=== PATIENT | male | born 1940 | race Caucasian/White ===

== ENCOUNTER 2023-03-23 08:49 | Inpatient (IN) | payer MEDICARE ==
[2023-03-23] MEDS ORDERED: SODIUM CHLORIDE 0.9% 1,000 ML IV STA (09:04)
[2023-03-23] MEDS ORDERED: ONDANSETRON 4 MG/2 ML VIAL IVP STA (09:04)
[2023-03-23] MEDS ORDERED: FAMOTIDINE 20 MG/2 ML VIAL IV STA (09:05)
[2023-03-23] MEDS ORDERED: KETOROLAC 15 MG/ML 1 ML VIAL IVP STA (09:05)
--- NOTE | 2023-03-23 09:35 | ED ---
Abdominal Pain HPI - General Chief Complaint: Abdominal Pain Stated Complaint: Abd Pain Time Seen by Provider: 03/23/23 08:54 Source: patient, RN notes reviewed Mode of arrival: ambulatory Limitations: no limitations - History of Present Illness Initial Comments: This is an 83-year-old male who presents to the emergency department for abdominal pain, nausea, vomiting, and diarrhea. States that last night he was having some centralized and upper abdominal pain with diarrhea. This morning when he woke up he proceeded to vomit a couple of times. He continues to have the abdominal pain. He is also starting to feel weak as a result of all of the vomiting. Patient wonders if it may be due to new chicken he has been eating. Denies any fevers or chills. Also denies any chest pain or shortness of breath. He does not drink alcohol. MD Complaint: abdominal pain Onset/Timin -: days(s) Location: periumbilical - Related Data Home Medications Medication Instructions Recorded Confirmed Atorvastatin Calcium [Lipitor] 40 mg PO HS 11/25/22 03/23/23 Meloxicam [Mobic] 15 mg PO DAILY 11/25/22 03/23/23 Omeprazole [PriLOSEC] 20 mg PO DAILY 11/25/22 03/23/23 atenoloL [Tenormin] 50 mg PO DAILY 11/25/22 03/23/23 Benazepril/Hydrochlorothiazide 1 tab PO DAILY 03/23/23 03/23/23 [Benazepril-Hctz 20-12.5 mg Tab] Cyclobenzaprine [Flexeril] 5 - 10 mg PO HS PRN 03/23/23 03/23/23 Donepezil 23mg 23 mg PO DAILY 03/23/23 03/23/23 Ferrous Sulfate [Feosol] 325 mg PO DAILY 03/23/23 03/23/23 Tamsulosin [Flomax] 0.4 mg PO DAILY 03/23/23 03/23/23 Allergies Allergy/AdvReac Type Severity Reaction Status Date / Time No Known Allergies Allergy Verified 03/23/23 12:55 Review of Systems ROS Statement: Those systems with pertinent positive or pertinent negative responses have been documented in the HPI. ROS Other: All systems not noted in ROS Statement are negative. Past Medical History Past Medical History: Hyperlipidemia, Hypertension Additional Past Medical History / Comment(s): kidney stones, Back pain History of Any Multi-Drug Resistant Organisms: None Reported Past Surgical History: No Surgical Hx Reported Past Psychological History: No Psychological Hx Reported Smoking Status: Never smoker Past Alcohol Use History: None Reported Past Drug Use History: None Reported - Past Family History Mother Additional Family Medical History / Comment(s): Brain surgery for removal of tumor-patient never recovered. Father Family Medical History: Prostate Disorder Additional Family Medical History / Comment(s): Prostate cancer. Urostomy. General Exam Limitations: no limitations General appearance: alert, in no apparent distress Head exam: Present: atraumatic, normocephalic, normal inspection Respiratory exam: Present: normal lung sounds bilaterally. Absent: respiratory distress, wheezes, rales, rhonchi, stridor Cardiovascular Exam: Present: regular rate, normal rhythm, normal heart sounds. Absent: systolic murmur, diastolic murmur, rubs, gallop, clicks GI/Abdominal exam: Present: soft, tenderness (epigastric and periumbilical), normal bowel sounds. Absent: distended Neurological exam: Present: alert, oriented X3, CN II-XII intact Psychiatric exam: Present: normal affect, normal mood Skin exam: Present: warm, dry, intact, normal color. Absent: rash Course Vital Signs 03/23/23 03/23/23 03/23/23 08:50 09:30 10:00 Temperature 98 F Pulse Rate 65 64 65 Respiratory 18 19 16 Rate Blood Pressure 211/83 191/83 173/81 O2 Sat by Pulse 98 100 100 Oximetry 03/23/23 12:00 Temperature 98.1 F Pulse Rate 65 Respiratory 16 Rate Blood Pressure 166/73 O2 Sat by Pulse 97 Oximetry Medical Decision Making - Medical Decision Making This is an 83-year-old male who presents to the emergency department for abdominal pain. Was pt. sent in by a medical professional or institution? @ -No Did you speak to anyone other than the patient for history? @ -No Did you review nursing and triage notes? @ -Yes, and I agree, it is accurate with regards to the patient's symptoms. Were old charts reviewed? @ -No Differential Diagnosis? @ -Differential Abdominal Pain Men: Appendicitis, cholecystitis, diverticulosis, ischemic bowel, pancreatitis, hepatitis, UTI, gastroenteritis, AAA, incarcerated hernia, bowel obstruction, constipation, inflammatory bowel, hepatitis, peptic ulcer disease, splenic infarction, perforated viscus, testicular torsion, this is not meant to be an all-inclusive list EKG interpreted by me (3pts min.)? @ -EKG interpreted by me demonstrating the following: Sinus rhythm. Ventricular rate 61 beats per minute, CO interval 190 ms, QRS duration 116 ms, QTC 458 ms. X-rays interpreted by me (1pt min.)? @ -Not obtained CT interpreted by me (1pt min.)? @ -Computed tomography scan of the abdomen and pelvis obtained. My interpretation identifies no evidence of bowel wall thickening or free air. U/S interpreted by me (1pt. min.)? @ -Not obtained What testing was considered but not performed? (CT, X-rays, U/S, labs)? Why? @ -None What meds were considered but not given? Why? @ -None Did you discuss the management of the patient with other professionals? @ -Yes, Dr. Hernandez, who accepts the patient for admission. Did you reconcile home meds? @ -Yes Was smoking cessation discussed for >3mins.? @ -No Was critical care preformed (if so, how long)? @ -No Were there social determinants of health that impacted care today? How? (Homelessness, low income, unemployed, alcoholism, drug addiction, transportation, low edu. Level, literacy, decrease access to med. care, assisted, rehab)? @ -No Was there de-escalation of care discussed even if they declined? (Discuss DNR or withdrawal of care, Hospice)? @ -No What co-morbidities impacted this encounter? (DM, HTN, Smoking, COPD, CAD, Cancer, CVA, Hep., AIDS, mental health diagnosis, sleep apnea, morbid obesity)? @ -HLD Was patient admitted / discharged? @ -Admitted. Lab work obtained with findings consistent with pancreatitis with a lipase of 1485. Amylase elevated as well at 248. Computed tomography scan of the abdomen and pelvis obtained revealing no acute process. Patient does not consume alcohol and there were no gallstones visualized on the computed tomography scan. He does have a history of hyperlipidemia and a lipid panel was ordered with results pending at the time of admission. Patient admitted to medicine for further management of pancreatitis. He will be kept NPO for the meantime due to the associated nausea and vomiting. Undiagnosed new problem with uncertain prognosis? @ -None Drug Therapy requiring intensive monitoring for toxicity (Heparin, Nitro, Insulin, Cardizem)? @ -None Were any procedures done? @ -None Diagnosis/symptom? @ -Pancreatitis Acute, or Chronic, or Acute on Chronic? @ -Acute Uncomplicated (without systemic symptoms) or Complicated (systemic symptoms)? @ -Uncomplicated Side effects of treatment? @ -None Exacerbation, Progression, or Severe Exacerbation] @ -Not applicable Poses a threat to life or bodily function? @ -This could become threatening if it were to progress This case was discussed in detail with the attending ED physician, Dr. Arredondo. Presentation, findings, and treatment plan discussed in detail as well. - Lab Data Result diagrams: 03/23/23 09:13 03/23/23 09:13 Lab Results 03/23/23 03/23/23 03/23/23 Range/Units 09:13 09:13 09:13 WBC 7.4 (3.8-10.6) k/uL RBC 4.64 (4.30-5.90) m/uL Hgb 13.9 (13.0-17.5) gm/dL Hct 40.7 (39.0-53.0) % MCV 87.6 (80.0-100.0) fL MCH 29.8 (25.0-35.0) pg MCHC 34.1 (31.0-37.0) g/dL RDW 13.8 (11.5-15.5) % Plt Count 212 (150-450) k/uL MPV 7.7 Neutrophils % 84 % Lymphocytes % 11 % Monocytes % 3 % Eosinophils % 0 % Basophils % 0 % Neutrophils # 6.2 (1.3-7.7) k/uL Lymphocytes # 0.8 L (1.0-4.8) k/uL Monocytes # 0.2 (0-1.0) k/uL Eosinophils # 0.0 (0-0.7) k/uL Basophils # 0.0 (0-0.2) k/uL Sodium 138 (137-145) mmol/L Potassium 3.9 (3.5-5.1) mmol/L Chloride 106 (98-107) mmol/L Carbon Dioxide 20 L (22-30) mmol/L Anion Gap 12 mmol/L BUN 12 (9-20) mg/dL Creatinine 0.82 (0.66-1.25) mg/dL Est GFR (CKD-EPI)AfAm >90 (>60 ml/min/1.73 sqM) Est GFR (CKD-EPI)NonAf 81 (>60 ml/min/1.73 sqM) Glucose 194 H (74-99) mg/dL Lactic Ac Sepsis Rflx Plasma Lactic Acid Adams (0.7-2.0) mmol/L Calcium 9.0 (8.4-10.2) mg/dL Total Bilirubin 1.1 (0.2-1.3) mg/dL AST 25 (17-59) U/L ALT 25 (4-49) U/L Alkaline Phosphatase 90 (38-126) U/L Total Protein 6.1 L (6.3-8.2) g/dL Albumin 4.1 (3.5-5.0) g/dL Amylase 268 H (30-110) U/L Lipase 1485 H (23-300) U/L Urine Color Colorless Urine Appearance Clear (Clear) Urine pH 7.0 (5.0-8.0) Ur Specific [place] 1.013 (1.001-1.035) Urine Protein Negative (Negative) Urine Glucose (UA) 3+ H (Negative) Urine Ketones 2+ H (Negative) Urine Blood Negative (Negative) Urine Nitrite Negative (Negative) Urine Bilirubin Negative (Negative) Urine Urobilinogen <2.0 (<2.0) mg/dL Ur Leukocyte Esterase Negative (Negative) Serum Alcohol mg/dL Influenza Type A (PCR) (Not Detectd) Influenza Type B (PCR) (Not Detectd) RSV (PCR) (Not Detectd) SARS-CoV-2 (PCR) (Not Detectd) 03/23/23 03/23/23 03/23/23 Range/Units 09:13 09:39 10:05 WBC (3.8-10.6) k/uL RBC (4.30-5.90) m/uL Hgb (13.0-17.5) gm/dL Hct (39.0-53.0) % MCV (80.0-100.0) fL MCH (25.0-35.0) pg MCHC (31.0-37.0) g/dL RDW (11.5-15.5) % Plt Count (150-450) k/uL MPV Neutrophils % % Lymphocytes % % Monocytes % % Eosinophils % % Basophils % % Neutrophils # (1.3-7.7) k/uL Lymphocytes # (1.0-4.8) k/uL Monocytes # (0-1.0) k/uL Eosinophils # (0-0.7) k/uL Basophils # (0-0.2) k/uL Sodium (137-145) mmol/L Potassium (3.5-5.1) mmol/L Chloride (98-107) mmol/L Carbon Dioxide (22-30) mmol/L Anion Gap mmol/L BUN (9-20) mg/dL Creatinine (0.66-1.25) mg/dL Est GFR (CKD-EPI)AfAm (>60 ml/min/1.73 sqM) Est GFR (CKD-EPI)NonAf (>60 ml/min/1.73 sqM) Glucose (74-99) mg/dL Lactic Ac Sepsis Rflx Y Plasma Lactic Acid Adams 2.3 H* (0.7-2.0) mmol/L Calcium (8.4-10.2) mg/dL Total Bilirubin (0.2-1.3) mg/dL AST (17-59) U/L ALT (4-49) U/L Alkaline Phosphatase (38-126) U/L Total Protein (6.3-8.2) g/dL Albumin (3.5-5.0) g/dL Amylase (30-110) U/L Lipase (23-300) U/L Urine Color Urine Appearance (Clear) Urine pH (5.0-8.0) Ur Specific [place] (1.001-1.035) Urine Protein (Negative) Urine Glucose (UA) (Negative) Urine Ketones (Negative) Urine Blood (Negative) Urine Nitrite (Negative) Urine Bilirubin (Negative) Urine Urobilinogen (<2.0) mg/dL Ur Leukocyte Esterase (Negative) Serum Alcohol mg/dL Influenza Type A (PCR) Not Detected (Not Detectd) Influenza Type B (PCR) Not Detected (Not Detectd) RSV (PCR) Not Detected (Not Detectd) SARS-CoV-2 (PCR) Not Detected (Not Detectd) 03/23/23 Range/Units 11:20 WBC (3.8-10.6) k/uL RBC (4.30-5.90) m/uL Hgb (13.0-17.5) gm/dL Hct (39.0-53.0) % MCV (80.0-100.0) fL MCH (25.0-35.0) pg MCHC (31.0-37.0) g/dL RDW (11.5-15.5) % Plt Count (150-450) k/uL MPV Neutrophils % % Lymphocytes % % Monocytes % % Eosinophils % % Basophils % % Neutrophils # (1.3-7.7) k/uL Lymphocytes # (1.0-4.8) k/uL Monocytes # (0-1.0) k/uL Eosinophils # (0-0.7) k/uL Basophils # (0-0.2) k/uL Sodium (137-145) mmol/L Potassium (3.5-5.1) mmol/L Chloride (98-107) mmol/L Carbon Dioxide (22-30) mmol/L Anion Gap mmol/L BUN (9-20) mg/dL Creatinine (0.66-1.25) mg/dL Est GFR (CKD-EPI)AfAm (>60 ml/min/1.73 sqM) Est GFR (CKD-EPI)NonAf (>60 ml/min/1.73 sqM) Glucose (74-99) mg/dL Lactic Ac Sepsis Rflx Plasma Lactic Acid Adams (0.7-2.0) mmol/L Calcium (8.4-10.2) mg/dL Total Bilirubin (0.2-1.3) mg/dL AST (17-59) U/L ALT (4-49) U/L Alkaline Phosphatase (38-126) U/L Total Protein (6.3-8.2) g/dL Albumin (3.5-5.0) g/dL Amylase (30-110) U/L Lipase (23-300) U/L Urine Color Urine Appearance (Clear) Urine pH (5.0-8.0) Ur Specific [place] (1.001-1.035) Urine Protein (Negative) Urine Glucose (UA) (Negative) Urine Ketones (Negative) Urine Blood (Negative) Urine Nitrite (Negative) Urine Bilirubin (Negative) Urine Urobilinogen (<2.0) mg/dL Ur Leukocyte Esterase (Negative) Serum Alcohol <10 mg/dL Influenza Type A (PCR) (Not Detectd) Influenza Type B (PCR) (Not Detectd) RSV (PCR) (Not Detectd) SARS-CoV-2 (PCR) (Not Detectd) - Radiology Data Radiology results: report reviewed, image reviewed Disposition Clinical Impression: Pancreatitis Disposition: ADMITTED IP TO THIS HOSP
[2023-03-23 09:45] LABS: Basophils % (A) 0 %; Eosinophils % (A) 0 %; HCT 40.7 % (39.0-53.0); HGB 13.9 gm/dL (13.0-17.5); Lymphocytes # (A) 0.8 k/uL (1.0-4.8); Lymphocytes % (A) 11 %; MCH 29.8 pg (25.0-35.0); MCHC 34.1 g/dL (31.0-37.0); MCV 87.6 fL (80.0-100.0); Mean Platelet Volume 7.7; Monocytes # (A) 0.2 k/uL (0-1.0); Monocytes % (A) 3 %; Neutrophils # (A) 6.2 k/uL (1.3-7.7); Neutrophils % (A) 84 %; Platelet Count 212 k/uL (150-450); RBC 4.64 m/uL (4.30-5.90); RDW 13.8 % (11.5-15.5); WBC 7.4 k/uL (3.8-10.6)
[2023-03-23 09:57] LABS: ALT 25 U/L (4-49); AST 25 U/L (17-59); African American GFR (CKD) >90 (>60 ml/min/1.73 sqM); Albumin 4.1 g/dL (3.5-5.0); Alkaline Phosphatase 90 U/L (38-126); Amylase 268 U/L (30-110); Anion Gap 12 mmol/L; Blood Urea Nitrogen 12 mg/dL (9-20); Carbon Dioxide 20 mmol/L (22-30); Chloride 106 mmol/L (98-107); Glucose 194 mg/dL (74-99); Lipase 1485 U/L (23-300); Non-African American GFR(CKD) 81 (>60 ml/min/1.73 sqM); Potassium 3.9 mmol/L (3.5-5.1); Sodium 138 mmol/L (137-145); Total Bilirubin 1.1 mg/dL (0.2-1.3); Total Protein 6.1 g/dL (6.3-8.2)
[2023-03-23 09:59] LABS: Appearance,Urine Clear (Clear); Bilirubin,Urine Negative (Negative); Blood,Urine Negative (Negative); Color,Urine Colorless; Glucose,Urine (UA) 3+ (Negative); Leukocyte Esterase,Urine Negative (Negative); Nitrite,Urine Negative (Negative); Protein,Urine Negative (Negative); Specific Gravity,Urine 1.013 (1.001-1.035); Urobilinogen,Urine <2.0 mg/dL (<2.0)
[2023-03-23 10:49] LABS: Ketones,Urine 2+ (Negative)
[2023-03-23] MEDS ORDERED: HYDROmorphone 0.5 MG/0.5 ML SYRINGE IVP STA (10:50)
--- NOTE | 2023-03-23 10:55 | CT ---
EXAMINATION TYPE: CT abdomen pelvis w con DATE OF EXAM: 03/23/2023 COMPARISON: 10/20/2015 HISTORY: Generalized pain, nausea and vomiting CT DLP: 767 mGycm CONTRAST: CT scan of the abdomen and pelvis is performed without Oral Contrast and with IV Contrast, patient in jected with 100 mL of Isovue 300. FINDINGS: LUNG BASES-: No visible nodule. No infiltrate. LIVER/GB: No calcified gallstones. There are a few scattered hepatic cysts noted on measuring less than 1 cm. No space occupying hepatic lesion. Biliary tree is of normal caliber. PANCREAS: No inflammation. No distinct mass. SPLEEN: No splenic enlargement. No lesion seen. ADRENALS: No nodule. No thickening. KIDNEYS/BLADDER: No hydronephrosis. 7 mm nonobstructing calculus lower pole right kidney. Renal cyst ic changes noted. No distinct renal mass. Urinary bladder grossly unremarkable. BOWEL: Normal appendix. Normal bowel caliber. No inflammation. GENITAL ORGANS: No gross abnormality. LYMPH NODES: No greater than 1cm abdominal or pelvic lymph nodes are appreciated. AORTA: No significant abnormality. OSSEOUS STRUCTURES: No significant abnormality is seen. OTHER: Fat-containing inguinal hernias. IMPRESSION: 1. No acute intra-abdominal process seen with certainty of this time. 2. Nonobstructing left-sided nephrolithiasis. 3. Scattered renal and hepatic cysts.
[2023-03-23] MEDS ORDERED: KETOROLAC 15 MG/ML 1 ML VIAL IVP PRN (11:10)
[2023-03-23] MEDS ORDERED: ACETAMINOPHEN TAB 325 MG TAB PO PRN (11:10)
[2023-03-23] MEDS ORDERED: HYDROmorphone 1 MG/ML 1 ML SYRINGE IVP PRN (11:10)
[2023-03-23] MEDS ORDERED: HYDROmorphone 0.5 MG/0.5 ML SYRINGE IVP PRN (11:10)
[2023-03-23] MEDS ORDERED: NALOXONE 0.4 MG/ML 1 ML VIAL IV PRN (11:10)
[2023-03-23] MEDS: SODIUM CHLORIDE 0.9% 1,000 ML IV SCH (11:21)
[2023-03-23 12:02] LABS: Alcohol <10 mg/dL
[2023-03-23] MEDS: MORPHINE SULFATE 4 MG/ML SYRINGE IVP PRN ×2 (13:34→19:00)
[2023-03-23] MEDS ORDERED: hydrALAZINE HCL 25 MG TAB PO STA (14:14)
[2023-03-23] MEDS ORDERED: CYCLOBENZAPRINE 5 MG TAB PO PRN (15:43)
[2023-03-23 16:28] LABS: LDL Cholesterol,Calculated 48.4 mg/dL (0.0-131.0)
--- NOTE | 2023-03-23 17:29 | P.HPIM ---
History of Present Illness H&P Date: 03/23/23 Chief Complaint: abd pain 83-year-old man with medical history of hyperlipidemia, hypertension, BPH presented for evaluation of abdominal pain. Patient says that starting 2 days ago he started to have a gradual increase of gnawing/sharp abdominal pain in his epigastrium. This is associated with nausea, vomiting as well as some diarrhea. Patient's ever had abdominal pain of this nature before. Patient denies any history of recent medication changes, denies alcohol history, denies tobacco use. Patient denies fevers, chills, chest pain, palpitations, syncope, presync ope, cough, dyspnea, dysuria, dyschezia, numbness/weakness of extremities. In the emergency room, patient was afebrile, 211/83, heart rate 65, 98% on room air. CBC was unremarkable. Basic metabolic panel showed CO2 of 20, otherwise unremarkable. Liver function tests are unremarkable. Amylase was elevated at 260, lipase is elevated at 1485. Lactic acid was 2.3. A repeat lactic acid was 0.9 after IV fluids. UA showed 3+ glucose, 2+ ketones. Alcohol level is less than 10. Influenza A, B, RSV, Covid were negative. CT of the abdomen/pelvis was negative for inflammatory pancreatic changes, but did show nonobstructing left-sided nephrolithiasis. EKG shows normal sinus rhythm with appropriate axis and incomplete right bundle branch block. All Systems reviewed and pertinent positives and negatives noted in HPI, all other symptoms are negative Gen: in no apparent distress, resting comfortably in bed Eyes: PERRL, no scleral injection or icterus HENT: normocephalic, atraumatic, good hearing acuity, moist mucous membranes Neck: no tracheal deviation, full range of motion Resp: good air exchange, breathing comfortably with no accessory muscle use, no tactile fremitus CVS: good distal perfusion x 4, no pitting edema GI: soft, epigastric TTP, ND, no hepatosplenomegaly : no suprapubic tenderness, no CVAT, johns catheter not present MSK: no clubbing, no cyanosis, no noted contractures of extremities Skin: no noted rashes, petechiae; temperature of skin is appropriate Neuro: moving all extremities without signs of weakness, CN II-XII intact Psych: cooperative, euthymic mood, insight and judgment intact Labs and Images as above Assessment/Plan: Acute Pancreatitis - IVF - NPO - morphine PRN for pain control - zofran PRN for nausea control - PPI HTN Urgency - resume atenolol - resume HCTZ/Benazepril - hydralazine 25mg QID PRN for SBP > 180, DBP > 110 HLD BPH - Home medications reviewed and reconciled Pt is Full Code Past Medical History Past Medical History: Hyperlipidemia, Hypertension Additional Past Medical History / Comment(s): kidney stones, Back pain History of Any Multi-Drug Resistant Organisms: None Reported Past Surgical History: No Surgical Hx Reported Past Psychological History: No Psychological Hx Reported Smoking Status: Never smoker Past Alcohol Use History: None Reported Past Drug Use History: None Reported - Past Family History Mother Additional Family Medical History / Comment(s): Brain surgery for removal of tumor-patient never recovered. Father Family Medical History: Prostate Disorder Additional Family Medical History / Comment(s): Prostate cancer. Urostomy. Medications and Allergies Home Medications Medication Instructions Recorded Confirmed Type Atorvastatin Calcium [Lipitor] 40 mg PO HS 11/25/22 03/23/23 History Meloxicam [Mobic] 15 mg PO DAILY 11/25/22 03/23/23 History Omeprazole [PriLOSEC] 20 mg PO DAILY 11/25/22 03/23/23 History atenoloL [Tenormin] 50 mg PO DAILY 11/25/22 03/23/23 History Benazepril/Hydrochlorothiazide 1 tab PO DAILY 03/23/23 03/23/23 History [Benazepril-Hctz 20-12.5 mg Tab] Cyclobenzaprine [Flexeril] 5 - 10 mg PO HS PRN 03/23/23 03/23/23 History Donepezil 23mg 23 mg PO DAILY 03/23/23 03/23/23 History Ferrous Sulfate [Feosol] 325 mg PO DAILY 03/23/23 03/23/23 History Tamsulosin [Flomax] 0.4 mg PO DAILY 03/23/23 03/23/23 History Allergies Allergy/AdvReac Type Severity Reaction Status Date / Time No Known Allergies Allergy Verified 03/23/23 12:55 Physical Exam Osteopathic Statement: *. No significant issues noted on an osteopathic structural exam other than those noted in the History and Physical/Consult. Vitals: Vital Signs Temp Pulse Pulse Resp BP BP Pulse Ox 03/23/23 15:54 97.6 F 72 15 190/77 98 03/23/23 14:14 97.8 F 65 14 194/83 99 03/23/23 13:07 97.8 F 61 16 199/79 98 03/23/23 12:00 98.1 F 65 16 166/73 97 03/23/23 10:00 65 16 173/81 100 03/23/23 09:30 64 19 191/83 100 03/23/23 08:50 98 F 65 18 211/83 98 Intake and Output 03/23/23 03/23/23 03/23/23 06:59 14:59 22:59 Other: Voiding Method Toilet Urinal Weight 75.75 kg Results CBC & Chem 7: 03/23/23 09:13 03/23/23 09:13 Labs: Abnormal Lab Results - Last 24 Hours (Table) 03/23/23 03/23/23 03/23/23 Range/Units 09:13 09:13 09:13 Lymphocytes # 0.8 L (1.0-4.8) k/uL Carbon Dioxide 20 L (22-30) mmol/L Glucose 194 H (74-99) mg/dL Plasma Lactic Acid Adams (0.7-2.0) mmol/L Total Protein 6.1 L (6.3-8.2) g/dL HDL Cholesterol (40.00-60.00) mg/dL Amylase 268 H (30-110) U/L Lipase 1485 H (23-300) U/L Urine Glucose (UA) 3+ H (Negative) Urine Ketones 2+ H (Negative) 03/23/23 03/23/23 Range/Units 09:13 11:20 Lymphocytes # (1.0-4.8) k/uL Carbon Dioxide (22-30) mmol/L Glucose (74-99) mg/dL Plasma Lactic Acid Adams 2.3 H* (0.7-2.0) mmol/L Total Protein (6.3-8.2) g/dL HDL Cholesterol 61.70 H (40.00-60.00) mg/dL Amylase (30-110) U/L Lipase (23-300) U/L Urine Glucose (UA) (Negative) Urine Ketones (Negative) Thrombosis Risk Factor Assmnt - Choose All That Apply Any of the Below Risk Factors Present?: Yes Each Risk Factor Represents 3 Points: Age 75 years or older Thrombosis Risk Factor Assessment Total Risk Factor Score: 3 Thrombosis Risk Factor Assessment Level: Moderate Risk
[2023-03-23] MEDS: ATORVASTATIN 40 MG TAB PO SCH (21:26)
[2023-03-23] MEDS: ONDANSETRON 4 MG/2 ML VIAL IVP PRN (21:35)
[2023-03-24] MEDS: MORPHINE SULFATE 4 MG/ML SYRINGE IVP PRN (00:10)
[2023-03-24] MEDS: SODIUM CHLORIDE 0.9% 1,000 ML IV SCH ×2 (02:34→15:57)
[2023-03-24] MEDS: hydrALAZINE HCL 25 MG TAB PO PRN ×3 (02:58→22:32)
[2023-03-24] MEDS: PANTOPRAZOLE 40 MG TABLET PO SCH (09:43)
[2023-03-24] MEDS: atenoloL 50 MG TAB PO SCH (09:43)
[2023-03-24] MEDS: MELOXICAM 7.5 MG TAB PO SCH (09:44)
[2023-03-24] MEDS: FERROUS SULFATE 325 MG TAB PO SCH (09:44)
[2023-03-24] MEDS: TAMSULOSIN 0.4 MG CAP.ER.24H PO SCH (09:44)
[2023-03-24] MEDS: DONEPEZIL 10 MG TAB PO SCH (09:44)
[2023-03-24] MEDS: hydroCHLOROthiazide 12.5 MG CAP PO SCH (09:44)
[2023-03-24] MEDS: lisinopriL 20 MG TAB PO SCH (09:44)
--- NOTE | 2023-03-24 10:16 | P.PN ---
Subjective Progress Note Date: 03/24/23 Pt reports that his abd pain is improved today. Does feel generally weak, and with minimal appetite. Gen: in no apparent distress, resting comfortably in bed Eyes: PERRL, no scleral injection or icterus HENT: normocephalic, atraumatic, good hearing acuity, moist mucous membranes Neck: no tracheal deviation, full range of motion Resp: good air exchange, breathing comfortably with no accessory muscle use, no tactile fremitus CVS: good distal perfusion x 4, no pitting edema GI: soft, epigastric TTP, ND, no hepatosplenomegaly : no suprapubic tenderness, no CVAT, johns catheter not present MSK: no clubbing, no cyanosis, no noted contractures of extremities Skin: no noted rashes, petechiae; temperature of skin is appropriate Neuro: moving all extremities without signs of weakness, CN II-XII intact Psych: cooperative, euthymic mood, insight and judgment intact Hospital Course: 83-year-old man with medical history of hyperlipidemia, hypertension, BPH presented for evaluation of abdominal pain. In the emergency room, patient was afebrile, 211/83, heart rate 65, 98% on room air. CBC was unremarkable. Basic metabolic panel showed CO2 of 20, otherwise unremarkable. Liver function tests are unremarkable. Amylase was elevated at 260, lipase is elevated at 1485. Lactic acid was 2.3. A repeat lactic acid was 0.9 after IV fluids. UA showed 3+ glucose, 2+ ketones. Alcohol level is less than 10. Influenza A, B, RSV, Covid were negative. CT of the abdomen/pelvis was negative for inflammatory pancreatic changes, but did show nonobstructing left-sided nephrolithiasis. EKG shows normal sinus rhythm with appropriate axis and incomplete right bundle branch block. Assessment/Plan: Acute Pancreatitis - IVF: NS @ 75cc/hr - NPO will be advanced to [facility]D today - morphine PRN for pain control - zofran PRN for nausea control - PPI HTN Urgency - resume atenolol - resume HCTZ/Benazepril - hydralazine 25mg QID PRN for SBP > 180, DBP > 110 HLD BPH - Home medications reviewed and reconciled Pt is Full Code Objective - Vital Signs Vital signs: Vital Signs Temp 98.1 F 03/24/23 07:09 Pulse 74 03/24/23 07:09 Resp 16 03/24/23 07:09 BP 182/74 03/24/23 07:09 Pulse Ox 98 03/24/23 07:09 FiO2 Intake & Output 03/23/23 03/24/23 03/24/23 18:59 06:59 18:59 Intake Total 375 Output Total 300 Balance 375 -300 Weight 75.75 kg Intake: Intake, IV Titration 375 Amount Sodium Chloride 0.9% 1, 375 000 ml @ 75 mls/hr IV . [id number] [facility] Rx#:[id number] Output: Urine 300 Other: Voiding Method Toilet Urinal Urinal # Voids 1 - Labs CBC & Chem 7: 03/23/23 09:13 03/23/23 09:13 Labs: Abnormal Lab Results - Last 24 Hours (Table) 03/23/23 03/23/23 Range/Units 09:13 11:20 HDL Cholesterol 61.70 H (40.00-60.00) mg/dL Urine Glucose (UA) 3+ H (Negative) Urine Ketones 2+ H (Negative)
[2023-03-24 10:54] LABS: Basophils # (A) 0.04 X 10*3/uL (0.00-0.10); Basophils % (A) 0.3 %; Eosinophils # (A) 0.01 X 10*3/uL (0.04-0.35); Eosinophils % (A) 0.1 %; HCT 37.5 % (39.6-50.0); HGB 12.9 g/dL (13.0-17.0); Lymphocytes # (A) 1.88 X 10*3/uL (0.90-5.00); Lymphocytes % (A) 13.7 %; MCH 29.6 pg (27.0-32.0); MCHC 34.4 g/dL (32.0-37.0); Mean Platelet Volume 10.4 FL (9.5-12.2); Monocytes # (A) 1.45 X 10*3/uL (0.20-1.00); Monocytes % (A) 10.6 %; NRBC Per 100 WBC 0 X 10*3/uL (0.00-0.01); Neutrophils # (A) 10.28 X 10*3/uL (1.80-7.70); Neutrophils % (A) 74.9 %; Platelet Count 249 X 10*3/uL (140-440); RBC 4.36 X 10*6/uL (4.40-5.60); RDW 13.6 % (11.5-14.5); WBC 13.72 X 10*3/uL (4.50-10.00)
[2023-03-24 11:11] LABS: Blood Urea Nitrogen 8.4 mg/dL (9.0-27.0); Calcium 8.9 mg/dL (8.7-10.3); Carbon Dioxide 23.8 mmol/L (21.6-31.8); Chloride 105 mmol/L (96-109); Glucose 107 mg/dL (70-110); Magnesium 1.8 mg/dL (1.5-2.4); Potassium 3.6 mmol/L (3.5-5.5); Sodium 139 mmol/L (135-145)
[2023-03-24] MEDS: ONDANSETRON 4 MG/2 ML VIAL IVP PRN (12:51)
[2023-03-24] MEDS: ATORVASTATIN 40 MG TAB PO SCH (22:32)
[2023-03-25] MEDS: SODIUM CHLORIDE 0.9% 1,000 ML IV SCH ×2 (06:11→23:04)
[2023-03-25] MEDS: PANTOPRAZOLE 40 MG TABLET PO SCH (08:48)
[2023-03-25] MEDS: TAMSULOSIN 0.4 MG CAP.ER.24H PO SCH (08:49)
[2023-03-25] MEDS: FERROUS SULFATE 325 MG TAB PO SCH (08:49)
[2023-03-25] MEDS: hydroCHLOROthiazide 12.5 MG CAP PO SCH (08:49)
[2023-03-25] MEDS: lisinopriL 20 MG TAB PO SCH (08:49)
[2023-03-25] MEDS: DONEPEZIL 10 MG TAB PO SCH (08:49)
[2023-03-25] MEDS: MELOXICAM 7.5 MG TAB PO SCH (08:49)
[2023-03-25] MEDS: atenoloL 50 MG TAB PO SCH (08:49)
--- NOTE | 2023-03-25 11:53 | P.DS ---
Providers Date of admission: 03/23/23 11:52 Expected date of discharge: 03/25/23 Attending physician: Vielka Hernandez MD Primary care physician: Cholo Kat [facility] Course: Acute Pancreatitis HTN Urgency HLD BPH Hospital Course: 83-year-old man with medical history of hyperlipidemia, hypertension, BPH presented for evaluation of abdominal pain. In the emergency room, patient was afebrile, 211/83, heart rate 65, 98% on room air. CBC was unremarkable. Basic metabolic panel showed CO2 of 20, otherwise unremarkable. Liver function tests are unremarkable. Amylase was elevated at 260, lipase is elevated at 1485. Lactic acid was 2.3. A repeat lactic acid was 0.9 after IV fluids. UA showed 3+ glucose, 2+ ketones. Alcohol level is less than 10. Influenza A, B, RSV, Covid were negative. CT of the abdomen/pelvis was negative for inflammatory pancreatic changes, but did show nonobstructing left-sided nephrolithiasis. EKG shows normal sinus rhythm with appropriate axis and incomplete right bundle branch block. Pt was admitted made NPO. IVF were continued. Pts symptoms resolved with bowel rest. He was able to tolerate a CLD by 24 hours and advanced diet by 48. He was discharged home with PCP f/u. I spent 34 minutes coordinating this discharge on 03/25 Gen: in no apparent distress, resting comfortably in bed Eyes: PERRL, no scleral injection or icterus HENT: normocephalic, atraumatic, good hearing acuity, moist mucous membranes Neck: no tracheal deviation, full range of motion Resp: good air exchange, breathing comfortably with no accessory muscle use, no tactile fremitus CVS: good distal perfusion x 4, no pitting edema GI: soft, epigastric TTP, ND, no hepatosplenomegaly : no suprapubic tenderness, no CVAT, johns catheter not present MSK: no clubbing, no cyanosis, no noted contractures of extremities Skin: no noted rashes, petechiae; temperature of skin is appropriate Neuro: moving all extremities without signs of weakness, CN II-XII intact Psych: cooperative, euthymic mood, insight and judgment intact Plan - Discharge Summary Discharge Rx Participant: Yes New Discharge Prescriptions: Continue atenoloL [Tenormin] 50 mg PO DAILY Meloxicam [Mobic] 15 mg PO DAILY Tamsulosin [Flomax] 0.4 mg PO DAILY Cyclobenzaprine [Flexeril] 5 - 10 mg PO HS PRN PRN Reason: Muscle Spasm Donepezil 23mg 23 mg PO DAILY Omeprazole [PriLOSEC] 20 mg PO DAILY Atorvastatin Calcium [Lipitor] 40 mg PO HS Benazepril/Hydrochlorothiazide [Benazepril-Hctz 20-12.5 mg Tab] 1 tab PO DAILY Ferrous Sulfate [Feosol] 325 mg PO DAILY Discharge Medication List Atorvastatin Calcium [Lipitor] 40 mg PO HS 11/25/22 [History] Meloxicam [Mobic] 15 mg PO DAILY 11/25/22 [History] Omeprazole [PriLOSEC] 20 mg PO DAILY 11/25/22 [History] atenoloL [Tenormin] 50 mg PO DAILY 11/25/22 [History] Benazepril/Hydrochlorothiazide [Benazepril-Hctz 20-12.5 mg Tab] 1 tab PO DAILY 03/23/23 [History] Cyclobenzaprine [Flexeril] 5 - 10 mg PO HS PRN 03/23/23 [History] Donepezil 23mg 23 mg PO DAILY 03/23/23 [History] Ferrous Sulfate [Feosol] 325 mg PO DAILY 03/23/23 [History] Tamsulosin [Flomax] 0.4 mg PO DAILY 03/23/23 [History] Follow up Appointment(s)/Referral(s): Elmer Kat MD [Primary Care Provider] - 1-2 days Discharge Disposition: HOME SELF-CARE
[2023-03-25] MEDS ORDERED: ONDANSETRON ODT 4 MG TAB PO PRN (18:29)
[2023-03-25] MEDS: ATORVASTATIN 40 MG TAB PO SCH (23:42)
[2023-03-26 03:39] VITALS: RESP 16
[2023-03-26] MEDS: SODIUM CHLORIDE 0.9% 1,000 ML IV SCH (05:59)
[2023-03-26 08:45] VITALS: BP 190/74; PULSE 76; TEMP 98.6
[2023-03-26] MEDS: hydroCHLOROthiazide 12.5 MG CAP PO SCH (09:25)
[2023-03-26] MEDS: FERROUS SULFATE 325 MG TAB PO SCH (09:25)
[2023-03-26] MEDS: MELOXICAM 7.5 MG TAB PO SCH (09:25)
[2023-03-26] MEDS: atenoloL 50 MG TAB PO SCH (09:25)
[2023-03-26] MEDS: TAMSULOSIN 0.4 MG CAP.ER.24H PO SCH (09:26)
[2023-03-26] MEDS: DONEPEZIL 10 MG TAB PO SCH (09:26)
[2023-03-26] MEDS: PANTOPRAZOLE 40 MG TABLET PO SCH (09:26)
[2023-03-26] MEDS: lisinopriL 20 MG TAB PO SCH (09:27)
--- NOTE | 2023-03-26 10:27 | P.DS ---
Providers Date of admission: 03/23/23 11:52 Expected date of discharge: 03/26/23 Attending physician: Vielka Hernandez MD Primary care physician: Cholo [facility] Course: Acute Pancreatitis HTN Urgency HLD BPH Hospital Course: 83-year-old man with medical history of hyperlipidemia, hypertension, BPH presented for evaluation of abdominal pain. In the emergency room, patient was afebrile, 211/83, heart rate 65, 98% on room air. CBC was unremarkable. Basic metabolic panel showed CO2 of 20, otherwise unremarkable. Liver function tests are unremarkable. Amylase was elevated at 260, lipase is elevated at 1485. Lactic acid was 2.3. A repeat lactic acid was 0.9 after IV fluids. UA showed 3+ glucose, 2+ ketones. Alcohol level is less than 10. Influenza A, B, RSV, Covid were negative. CT of the abdomen/pelvis was negative for inflammatory pancreatic changes, but did show nonobstructing left-sided nephrolithiasis. EKG shows normal sinus rhythm with appropriate axis and incomplete right bundle branch block. Pt was admitted made NPO. IVF were continued. Pts symptoms resolved with bowel rest. He was able to tolerate a CLD by 24 hours and advanced diet by 48. He was discharged home with PCP f/u. Zofran ODT 4mg q8h PRN was added for nausea I spent 31 minutes coordinating this discharge on 03/26 Gen: in no apparent distress, resting comfortably in bed Eyes: PERRL, no scleral injection or icterus HENT: normocephalic, atraumatic, good hearing acuity, moist mucous membranes Neck: no tracheal deviation, full range of motion Resp: good air exchange, breathing comfortably with no accessory muscle use, no tactile fremitus CVS: good distal perfusion x 4, no pitting edema GI: soft, epigastric TTP, ND, no hepatosplenomegaly : no suprapubic tenderness, no CVAT, johns catheter not present MSK: no clubbing, no cyanosis, no noted contractures of extremities Skin: no noted rashes, petechiae; temperature of skin is appropriate Neuro: moving all extremities without signs of weakness, CN II-XII intact Psych: cooperative, euthymic mood, insight and judgment intact Patient Condition at Discharge: Good Plan - Discharge Summary Discharge Rx Participant: Yes New Discharge Prescriptions: New Ondansetron Odt [Zofran Odt] 4 mg PO Q8HR PRN #15 tab PRN Reason: Nausea Ondansetron Odt [Zofran ODT] 4 mg PO Q8HR PRN #15 tab PRN Reason: Nausea Continue atenoloL [Tenormin] 50 mg PO DAILY Meloxicam [Mobic] 15 mg PO DAILY Tamsulosin [Flomax] 0.4 mg PO DAILY Cyclobenzaprine [Flexeril] 5 - 10 mg PO HS PRN PRN Reason: Muscle Spasm Donepezil 23mg 23 mg PO DAILY Omeprazole [PriLOSEC] 20 mg PO DAILY Atorvastatin Calcium [Lipitor] 40 mg PO HS Benazepril/Hydrochlorothiazide [Benazepril-Hctz 20-12.5 mg Tab] 1 tab PO DAILY Ferrous Sulfate [Feosol] 325 mg PO DAILY Discharge Medication List Atorvastatin Calcium [Lipitor] 40 mg PO HS 11/25/22 [History] Meloxicam [Mobic] 15 mg PO DAILY 11/25/22 [History] Omeprazole [PriLOSEC] 20 mg PO DAILY 11/25/22 [History] atenoloL [Tenormin] 50 mg PO DAILY 11/25/22 [History] Benazepril/Hydrochlorothiazide [Benazepril-Hctz 20-12.5 mg Tab] 1 tab PO DAILY 03/23/23 [History] Cyclobenzaprine [Flexeril] 5 - 10 mg PO HS PRN 03/23/23 [History] Donepezil 23mg 23 mg PO DAILY 03/23/23 [History] Ferrous Sulfate [Feosol] 325 mg PO DAILY 03/23/23 [History] Tamsulosin [Flomax] 0.4 mg PO DAILY 03/23/23 [History] Ondansetron Odt [Zofran ODT] 4 mg PO Q8HR PRN #15 tab 03/26/23 [Rx] Ondansetron Odt [Zofran Odt] 4 mg PO Q8HR PRN #15 tab 03/26/23 [Rx] Follow up Appointment(s)/Referral(s): Elmer Kat MD [Primary Care Provider] - 1-2 days (call office for fo llow up appt) Patient Instructions/Handouts: Ondansetron (By mouth), Pancreatitis (DC), Low Fat Diet (DC) Discharge Disposition: HOME SELF-CARE
== END 2023-03-26 12:20 | disposition home or self-care (01) | DRG 440 ==
LOC: EC 08:49 → 5NMEDONC 11:52
PROVIDERS: ADMIT Internal Medicine; ATTEND Internal Medicine
DX: K85.90 Acute pancreatitis without necrosis or infection, unspecified (principal); E78.5 Hyperlipidemia, unspecified; I16.0 Hypertensive urgency; I10 Essential (primary) hypertension; N40.0 Benign prostatic hyperplasia without lower urinary tract symptoms; I25.10 Atherosclerotic heart disease of native coronary artery without angina pectoris; Z20.822 Contact with and (suspected) exposure to COVID-19; I45.10 Unspecified right bundle-branch block; Z79.899 Other long term (current) drug therapy; Z79.1 Long term (current) use of non-steroidal anti-inflammatories (NSAID); Z87.442 Personal history of urinary calculi
CPT/HCPCS: 36415; 74177; 80048; 80053; 80061; 80320; 81003; 82150; 83605; 83690; 83735; 85025; 87636; 93005; 96361; 96374; 96375; 99285

== ENCOUNTER 2023-03-27 02:15 | Inpatient (IN) | payer MEDICARE ==
--- NOTE | 2023-03-27 02:38 | ED ---
General Adult HPI - General Chief complaint: Fall Stated complaint: Fall, Head Injury Time Seen by Provider: 03/27/23 02:26 Source: patient, EMS, RN notes reviewed, old records reviewed Limitations: altered mental status - History of Present Illness Initial comments: 83-year-old male presents from home after fall with head trauma. Patient is unable to contribute history. History obtained from paramedics is states that the patient was discharged from the hospital earlier today and had apparently fallen with head trauma. No anticoagulation. Uncertain if there was loss of consciousness. Patient was admitted with pancreatitis and upper abdominal pain. - Related Data Home Medications Medication Instructions Recorded Confirmed Atorvastatin Calcium [Lipitor] 40 mg PO HS 11/25/22 03/23/23 Meloxicam [Mobic] 15 mg PO DAILY 11/25/22 03/23/23 Omeprazole [PriLOSEC] 20 mg PO DAILY 11/25/22 03/23/23 atenoloL [Tenormin] 50 mg PO DAILY 11/25/22 03/23/23 Benazepril/Hydrochlorothiazide 1 tab PO DAILY 03/23/23 03/23/23 [Benazepril-Hctz 20-12.5 mg Tab] Cyclobenzaprine [Flexeril] 5 - 10 mg PO HS PRN 03/23/23 03/23/23 Donepezil 23mg 23 mg PO DAILY 03/23/23 03/23/23 Ferrous Sulfate [Feosol] 325 mg PO DAILY 03/23/23 03/23/23 Tamsulosin [Flomax] 0.4 mg PO DAILY 03/23/23 03/23/23 Previous Rx's Medication Instructions Recorded Ondansetron Odt [Zofran ODT] 4 mg PO Q8HR PRN #15 tab 03/26/23 Ondansetron Odt [Zofran Odt] 4 mg PO Q8HR PRN #15 tab 03/26/23 Allergies Allergy/AdvReac Type Severity Reaction Status Date / Time No Known Allergies Allergy Verified 03/27/23 02:23 Review of Systems ROS Statement: Those systems with pertinent positive or pertinent negative responses have been documented in the HPI. ROS Other: All systems not noted in ROS Statement are negative. Past Medical History Past Medical History: Hyperlipidemia, Hypertension Additional Past Medical History / Comment(s): kidney stones, Back pain History of Any Multi-Drug Resistant Organisms: None Reported Past Surgical History: No Surgical Hx Reported Past Psychological History: No Psychological Hx Reported Smoking Status: Never smoker Past Alcohol Use History: None Reported Past Drug Use History: None Reported - Past Family History Mother Additional Family Medical History / Comment(s): Brain surgery for removal of tumor-patient never recovered. Father Family Medical History: Prostate Disorder Additional Family Medical History / Comment(s): Prostate cancer. Urostomy. General Exam Limitations: no limitations General appearance: alert, in no apparent distress Head exam: Present: other (Abrasion to the forehead and upper lip) Eye exam: Present: PERRL Respiratory exam: Present: normal lung sounds bilaterally. Absent: respiratory distress, wheezes Cardiovascular Exam: Present: regular rate, normal rhythm GI/Abdominal exam: Present: tenderness (Epigastric). Absent: soft, distended Extremities exam: Present: normal inspection, normal capillary refill Neurological exam: Present: alert. Absent: oriented X3 Skin exam: Present: warm Course Vital Signs 03/27/23 03/27/23 02:16 03:25 Temperature 97.5 F L Pulse Rate 65 58 L Respiratory 20 20 Rate Blood Pressure 133/84 166/75 O2 Sat by Pulse 100 100 Oximetry Medical Decision Making - Medical Decision Making Was pt. sent in by a medical professional or institution (, PA, [employer] W[employer]ER, urgent care, hospital, or group home...) When possible be specific @ -No Did you speak to anyone other than the patient for history (EMS, parent, family, police, friend...)? What history was obtained from this source @ -No Did you review nursing and triage notes (agree or disagree)? Why? @ -I reviewed and agree with nursing and triage notes Were old charts reviewed (outside hosp., previous admission, EMS record, old EKG, old radiological studies, urgent care reports/EKG's, group home records)? Report findings @ -No old charts were reviewed Differential Diagnosis (chest pain, altered mental status, abdominal pain women, abdominal pain men, vaginal bleeding, weakness, fever, dyspnea, syncope, headache, dizziness, GI bleed, back pain, seizure, CVA, palpatations, mental health, musculoskeletal)? @ -not applicable EKG interpreted by me (3pts min.). @ -[Sinus rhythm rate of 58, intraventricular conduction delay NC interval 177, QRS duration 110, QTC 457 X-rays interpreted by me (1pt min.). @ -[Chest x-ray and AP pelvis negative for traumatic injury CT interpreted by me (1pt min.). @ -[CT brain negative for intracranial hemorrhage, CT cervical spine negative for fracture subluxation U/S interpreted by me (1pt. min.). @ -None done What testing was considered but not performed or refused? (CT, X-rays, U/S, labs)? Why? @ -None What meds were considered but not given or refused? Why? @ -None Did you discuss the management of the patient with other professionals (professionals i.e. DrTaylor, PA, [employer] W[employer]ER, lab, RT, psych nurse, social worker delinquency prevention, wrist closer, teacher, [employer]oc airspace control officer, pillowcase maker)? Give summary @ -[Abid Was smoking cessation discussed for >3mins.? @ -No Was critical care preformed (if so, how long)? @ -No Were there social determinants of health that impacted care today? How? ([place] elessness, low income, unemployed, alcoholism, drug addiction, transportation, low edu. Level, literacy, decrease access to med. care, senior living, rehab)? @ -No Was there de-escalation of care discussed even if they declined (Discuss DNR or withdrawal of care, Hospice)? DNR status @ -No What co-morbidities impacted this encounter? (DM, HTN, Smoking, COPD, CAD, Cancer, CVA, ARF, Chemo, Hep., AIDS, mental health diagnosis, sleep apnea, morbid obesity)? @ -[Recent admission for pancreatitis Was patient admitted / discharged? Hospital course, mention meds given and route, prescriptions, significant lab abnormalities, going to OR and other pertinent info. @ -83-year-old male with fall at home, uncertain if this was mechanical or syncopal in nature. No sustained loss of consciousness. No anticoagulation. He has some minor facial trauma. CT brain and cervical spine are negative for traumatic injury. Patient has a mild leukocytosis. Normal electrolytes. His l ipase is normal at this time. He will be admitted, likely requiring subacute rehab. Case discussed with Undiagnosed new problem with uncertain prognosis? @ -No Drug Therapy requiring intensive monitoring for toxicity (Heparin, Nitro, Insulin, Cardizem)? @ -No Were any procedures done? @ -No Diagnosis/symptom? @ -Weakness, dehydration, fall Acute, or Chronic, or Acute on Chronic? @ -Acute Uncomplicated (without systemic symptoms) or Complicated (systemic symptoms)? @ -default Side effects of treatment? @ -No Exacerbation, Progression, or Severe Exacerbation? @ -No Poses a threat to life or bodily function? How? (Chest pain, USA, NM, pneumonia, PE, COPD, DKA, ARF, appy, cholecystitis, CVA, Diverticulitis, Homicidal, Suicidal, threat to staff... and all critical care pts) @ -Yes, - Lab Data Result diagrams: 03/27/23 02:43 03/27/23 02:43 Lab Results 03/27/23 03/27/23 Range/Units 02:43 02:43 WBC 13.9 H (3.8-10.6) k/uL RBC 5.01 (4.30-5.90) m/uL Hgb 15.4 (13.0-17.5) gm/dL Hct 44.4 (39.0-53.0) % MCV 88.6 (80.0-100.0) fL MCH 30.7 (25.0-35.0) pg MCHC 34.6 (31.0-37.0) g/dL RDW 13.9 (11.5-15.5) % Plt Count 227 (150-450) k/uL MPV 8.0 Neutrophils % 76 % Lymphocytes % 14 % Monocytes % 8 % Eosinophils % 1 % Basophils % 0 % Neutrophils # 10.5 H (1.3-7.7) k/uL Lymphocytes # 2.0 (1.0-4.8) k/uL Monocytes # 1.1 H (0-1.0) k/uL Eosinophils # 0.1 (0-0.7) k/uL Basophils # 0.0 (0-0.2) k/uL Sodium 139 (137-145) mmol/L Potassium 3.2 L (3.5-5.1) mmol/L Chloride 103 (98-107) mmol/L Carbon Dioxide 25 (22-30) mmol/L Anion Gap 11 mmol/L BUN 13 (9-20) mg/dL Creatinine 1.06 (0.66-1.25) mg/dL Est GFR (CKD-EPI)AfAm 75 (>60 ml/min/1.73 sqM) Est GFR (CKD-EPI)NonAf 65 (>60 ml/min/1.73 sqM) Glucose 134 H (74-99) mg/dL Calcium 9.3 (8.4-10.2) mg/dL Total Bilirubin 1.4 H (0.2-1.3) mg/dL AST 27 (17-59) U/L ALT 26 (4-49) U/L Alkaline Phosphatase 81 (38-126) U/L Total Protein 6.1 L (6.3-8.2) g/dL Albumin 4.0 (3.5-5.0) g/dL Lipase 211 (23-300) U/L Disposition Clinical Impression: Fall, Syncope Disposition: ADMITTED IP TO THIS HOSP Condition: Stable Is patient prescribed a controlled substance at d/c from ED?: No Referrals: Elmer Kat MD [Primary Care Provider] - 1-2 days Time of Disposition: 05:12
[2023-03-27 03:05] LABS: Basophils % (A) 0 %; Eosinophils # (A) 0.1 k/uL (0-0.7); Eosinophils % (A) 1 %; HCT 44.4 % (39.0-53.0); HGB 15.4 gm/dL (13.0-17.5); Lymphocytes % (A) 14 %; MCH 30.7 pg (25.0-35.0); MCHC 34.6 g/dL (31.0-37.0); MCV 88.6 fL (80.0-100.0); Monocytes # (A) 1.1 k/uL (0-1.0); Monocytes % (A) 8 %; Neutrophils # (A) 10.5 k/uL (1.3-7.7); Neutrophils % (A) 76 %; Platelet Count 227 k/uL (150-450); RBC 5.01 m/uL (4.30-5.90); RDW 13.9 % (11.5-15.5); WBC 13.9 k/uL (3.8-10.6)
[2023-03-27 03:41] LABS: ALT 26 U/L (4-49); AST 27 U/L (17-59); African American GFR (CKD) 75 (>60 ml/min/1.73 sqM); Alkaline Phosphatase 81 U/L (38-126); Anion Gap 11 mmol/L; Blood Urea Nitrogen 13 mg/dL (9-20); Calcium 9.3 mg/dL (8.4-10.2); Carbon Dioxide 25 mmol/L (22-30); Chloride 103 mmol/L (98-107); Glucose 134 mg/dL (74-99); Lipase 211 U/L (23-300); Non-African American GFR(CKD) 65 (>60 ml/min/1.73 sqM); Potassium 3.2 mmol/L (3.5-5.1); Sodium 139 mmol/L (137-145); Total Bilirubin 1.4 mg/dL (0.2-1.3); Total Protein 6.1 g/dL (6.3-8.2)
[2023-03-27] MEDS: ONDANSETRON 4 MG/2 ML VIAL IVP STA (03:53)
--- NOTE | 2023-03-27 04:03 | CT ---
EXAM: CT Head Without Intravenous Contrast CLINICAL HISTORY: ITS.REASON CT Reason: fall TECHNIQUE: Axial computed tomography images of the head/brain without intravenous contrast. CTDI is 45.2 mGy and DLP is 1083 mGy-cm. This CT exam was performed using one or more of the following dose reduction techniques: automated exposure control, adjustment of the mA and/or kV according to patient size, and/or use of iterative reconstruction technique. COMPARISON: 11/25/2022 FINDINGS: Brain: No hemorrhage or mass effect. Ventricles: No hydrocephalus. Bones/joints: Unremarkable. Soft tissues: Unremarkable. Sinuses: No air fluid level. Mastoid air cells: Clear. IMPRESSION: No acute hemorrhage, hydrocephalus, or mass effect. EXAM: CT Cervical Spine Without Intravenous Contrast CLINICAL HISTORY: ITS.REASON CT Reason: fall TECHNIQUE: Axial computed tomography images of the cervical spine without intravenous contrast. CTDI is 13.2 mGy and DLP is 363.9 mGy-cm. This CT exam was performed using one or more of the following dose reduction techniques: automated exposure control, adjustment of the mA and/or kV according to patient size, and/or use of iterative reconstruction technique. COMPARISON: No relevant prior studies available. FINDINGS: Vertebrae: No acute fracture. Discs/spinal canal/neural foramina: degenerative changes. Soft tissues: No prevertebral swelling. IMPRESSION: No acute fracture or subluxation.
[2023-03-27] MEDS: SODIUM CHLORIDE 0.9% 1,000 ML IV SCH (04:44)
[2023-03-27] MEDS ORDERED: NALOXONE 0.4 MG/ML 1 ML VIAL IV PRN (04:48)
--- NOTE | 2023-03-27 05:05 | XR ---
EXAM: XR Chest, 1 View CLINICAL HISTORY: ITS.REASON XR Reason: fall TECHNIQUE: Frontal view of the chest. COMPARISON: No relevant prior studies available. FINDINGS: Lungs: No consolidation or mass. Pleural space: No acute findings Heart: No cardiomegaly. Bones/joints: No acute findings. IMPRESSION: No acute cardiopulmonary process.
--- NOTE | 2023-03-27 05:06 | XR ---
EXAM: XR Pelvis, 1 or 2 Views CLINICAL HISTORY: ITS.REASON XR Reason: fall TECHNIQUE: Frontal view of the pelvis. COMPARISON: No relevant prior studies available. FINDINGS: Bones/joints: No acute fracture. No dislocation. Soft tissues: Unremarkable. IMPRESSION: No acute findings.
--- NOTE | 2023-03-27 05:13 | P.HPIM ---
History of Present Illness H&P Date: 03/27/23 Patient is a 83-year-old male with a PMH of hypertension, hyperlipidemia, and BPH who presents to the emergency room after an episode of syncope and fall. Of note, the patient was discharged from the hospital yesterday after a 3 day hospitalization for pancreatitis. He reports doing well at home following his discharge until he went to use the restroom and the next thing he remembers, he was on the ground. As per the ED provider, the patient's son had heard a thud and went into the restroom to find the patient on the ground. The patient suffered lacerations to his lips. He does not recall any preceding symptoms including chest discomfort, dizziness, or shortness of breath. He denied ex periencing urinary incontinence or tongue biting. Reports minimal post ictal confusion. Denies any prior history of loss of consciousness. Reports feeling somewhat confused at the time of interview but had no additional complaints. In the emergency room a head/cervical spine CT was unremarkable with chest x-ray also unremarkable. Pelvis x-ray was unremarkable. EKG reveals sinus bradycardia with PVCs at 58 bpm with intraventricular conduction delay (unchanged from prior EKG) as reviewed by me. Laboratory evaluation was remarkable for leukocytosis of 13.9, potassium 3.2, total bilirubin 1.4, glucose 134, and lipase 211. ED documentation reviewed and case discussed with ED provider. Review of systems: Pertinent positives and negatives as discussed in HPI, a complete review of systems was performed and all other systems are negative. Physical examination: Vital signs reviewed General: non toxic, no distress, appears at stated age, normal weight Derm: Upper and lower lip lacerations noted, warm Head: atraumatic, normocephalic, symmetric Eyes: EOMI, no lid lag, anicteric sclera, pupils equal round reactive to light ENT: Nose and ears atraumatic Neck: No cervical lymphadenopathy, trachea midline, supple Mouth: no lip lesion, mucus membranes moist Cardiovascular: S1S2 reg, no murmur, positive dorsalis pedis pulse bilateral, no edema Lungs: CTA bilateral, no rhonchi, no rales, no accessory muscle use Abdominal: soft, nontender to palpation, no guarding Ext: muscle strength 4 out of 5 in all 4 extremities grossly, no gross muscle atrophy, no contractures, Neuro: CN II-XI grossly intact, no gross focal neuro deficits Psych: Alert, oriented, appropriate affect Assessment: Syncope, unclear etiology Hypokalemia Leukocytosis, may be due to acute stressor, no signs of active infection at this time Chronic conditions: Hypertension, hyperlipidemia, BPH Imaging: In the emergency room a head/cervical spine CT was unremarkable with chest x-ray also unremarkable. Pelvis x-ray was unremarkable. EKG reveals sinus bradycardia with PVCs at 58 bpm with intraventricular conduction delay (unchang ed from prior EKG) as reviewed by me. Data Review: Laboratory evaluation was remarkable for leukocytosis of 13.9, potassium 3.2, total bilirubin 1.4, glucose 134, and lipase 211. Plan: Cardiac monitoring Fall precautions Echocardiogram Replace potassium and monitor Monitor CBC Continue with home medications PT consult DVT prophylaxis: Lovenox Subq The patient is admitted with an anticipated greater than 2 midnight stay for evaluation of syncope CODE STATUS: Full Code Discussed with: Patient Anticipated discharge place: Home Past Medical History Past Medical History: Hyperlipidemia, Hypertension Additional Past Medical History / Comment(s): kidney stones, Back pain History of Any Multi-Drug Resistant Organisms: None Reported Past Surgical History: No Surgical Hx Reported Past Psychological History: No Psychological Hx Reported Smoking Status: Never smoker Past Alcohol Use History: None Reported Past Drug Use History: None Reported - Past Family History Mother Additional Family Medical History / Comment(s): Brain surgery for removal of tumor-patient never recovered. Father Family Medical History: Prostate Disorder Additional Family Medical History / Comment(s): Prostate cancer. Urostomy. Medications and Allergies Home Medications Medication Instructions Recorded Confirmed Type Atorvastatin Calcium [Lipitor] 40 mg PO HS 11/25/22 03/23/23 History Meloxicam [Mobic] 15 mg PO DAILY 11/25/22 03/23/23 History Omeprazole [PriLOSEC] 20 mg PO DAILY 11/25/22 03/23/23 History atenoloL [Tenormin] 50 mg PO DAILY 11/25/22 03/23/23 History Benazepril/Hydrochlorothiazide 1 tab PO DAILY 03/23/23 03/23/23 History [Benazepril-Hctz 20-12.5 mg Tab] Cyclobenzaprine [Flexeril] 5 - 10 mg PO HS PRN 03/23/23 03/23/23 History Donepezil 23mg 23 mg PO DAILY 03/23/23 03/23/23 History Ferrous Sulfate [Feosol] 325 mg PO DAILY 03/23/23 03/23/23 History Tamsulosin [Flomax] 0.4 mg PO DAILY 03/23/23 03/23/23 History Ondansetron Odt [Zofran ODT] 4 mg PO Q8HR PRN #15 tab 03/26/23 Rx Ondansetron Odt [Zofran Odt] 4 mg PO Q8HR PRN #15 tab 03/26/23 Rx Allergies Allergy/AdvReac Type Severity Reaction Status Date / Time No Known Allergies Allergy Verified 03/27/23 02:23 Physical Exam Vitals: Vital Signs Temp Pulse Resp BP Pulse Ox 03/27/23 03:25 58 L 20 166/75 100 03/27/23 02:16 97.5 F L 65 20 133/84 100 Intake and Output 03/26/23 03/26/23 03/27/23 14:59 22:59 06:59 Other: Weight 72.575 kg Results CBC & Chem 7: 03/27/23 02:43 03/27/23 02:43 Labs: Abnormal Lab Results - Last 24 Hours (Table) 03/27/23 03/27/23 Range/Units 02:43 02:43 WBC 13.9 H (3.8-10.6) k/uL Neutrophils # 10.5 H (1.3-7.7) k/uL Monocytes # 1.1 H (0-1.0) k/uL Potassium 3.2 L (3.5-5.1) mmol/L Glucose 134 H (74-99) mg/dL Total Bilirubin 1.4 H (0.2-1.3) mg/dL Total Protein 6.1 L (6.3-8.2) g/dL
[2023-03-27 06:25] LABS: HCT 40.9 % (39.0-53.0); HGB 14.1 gm/dL (13.0-17.5); MCHC 34.6 g/dL (31.0-37.0); MCV 89.8 fL (80.0-100.0); Mean Platelet Volume 7.7; Platelet Count 200 k/uL (150-450); RBC 4.55 m/uL (4.30-5.90); RDW 13.9 % (11.5-15.5); WBC 12.6 k/uL (3.8-10.6)
[2023-03-27] MEDS: POTASSIUM CHLORIDE ER 20 MEQ TAB.ER PO STA (06:30)
[2023-03-27 06:41] LABS: African American GFR (CKD) 78 (>60 ml/min/1.73 sqM); Anion Gap 7 mmol/L; Blood Urea Nitrogen 13 mg/dL (9-20); Calcium 8.9 mg/dL (8.4-10.2); Carbon Dioxide 28 mmol/L (22-30); Chloride 104 mmol/L (98-107); Glucose 121 mg/dL (74-99); Non-African American GFR(CKD) 67 (>60 ml/min/1.73 sqM); Potassium 3.4 mmol/L (3.5-5.1); Sodium 139 mmol/L (137-145)
[2023-03-27] MEDS: ENOXAPARIN 40 MG/0.4 ML SYRINGE SQ SCH (07:16)
[2023-03-27 10:16] LABS: Appearance,Urine Clear (Clear); Bilirubin,Urine Negative (Negative); Blood,Urine Negative (Negative); Color,Urine Yellow; Glucose,Urine (UA) Negative (Negative); Ketones,Urine 2+ (Negative); Leukocyte Esterase,Urine Negative (Negative); Nitrite,Urine Negative (Negative); Protein,Urine Negative (Negative); Urobilinogen,Urine <2.0 mg/dL (<2.0)
[2023-03-27] MEDS: atenoloL 50 MG TAB PO SCH (10:55)
[2023-03-27] MEDS: FERROUS SULFATE 325 MG TAB PO SCH (10:55)
[2023-03-27] MEDS: DONEPEZIL 10 MG TAB PO SCH (10:55)
[2023-03-27] MEDS: TAMSULOSIN 0.4 MG CAP.ER.24H PO SCH (10:55)
[2023-03-27] MEDS: PANTOPRAZOLE 40 MG TABLET PO SCH (10:55)
[2023-03-27] MEDS: LISINOPRIL-HCTZ 20-12.5 MG 1 EACH TAB PO SCH (11:09)
[2023-03-27] MEDS: hydrALAZINE HCL 20 MG/ML 1 ML VIAL IVP STA (12:33)
[2023-03-27] MEDS: ACETAMINOPHEN TAB 325 MG TAB PO PRN (12:33)
--- NOTE | 2023-03-27 17:49 | CA ---
Transthoracic Echo Report Name: Mono Meyer Age: 83 Gender: M : 1940 Exam Date: 03/27/2023 13:51 Exam Location: [facility] Ht (in): 68 Wt (lb): 160 Ordering Physician: Stacey Baxter MD Attending/Referring Phys: Electronic Maintenance Supervisor Cat Ward RDCS Procedure CPT: Indications: Syncope Cardiac Hx: Technical Quality: Fair Contrast 1: Total Dose (mL): Contrast 2: Total Dose (mL): MEASUREMENTS (Male / Female) Normal Values 2D ECHO LV Diastolic Diameter PLAX 4.0 cm 4.2 - 5.9 / 3.9 - 5.3 cm LV Systolic Diameter PLAX 2.2 cm IVS Diastolic Thickness 1.1 cm 0.6 - 1.0 / 0.6 - 0.9 cm LVPW Diastolic Thickness 1.4 cm 0.6 - 1.0 / 0.6 - 0.9 cm LV Relative Wall Thickness 0.6 RV Internal Dim ED PLAX 3.5 cm LA Volume 44.4 cm??? 18 - 58 / 22 - 52 cm??? LA Volume Index 23.7 cm???/m??? 16 - 28 cm???/m??? M-MODE Aortic Root Diameter MM 2.8 cm LA Systolic Diameter MM 3.7 cm LA Ao Ratio MM 1.3 AV Cusp Separation MM 1.9 cm DOPPLER AV Peak Velocity 185.5 cm/s AV Peak Gradient 13.8 mmHg AV Mean Velocity 128.9 cm/s AV Mean Gradient 7.3 mmHg AV Velocity Time Integral 37.8 cm LVOT Peak Velocity 132.1 cm/s LVOT Peak Gradient 7.0 mmHg LVOT Velocity Time Integral 27.0 cm MV Area PHT 2.7 cm??? Mitral E Point Velocity 75.7 cm/s Mitral A Point Velocity 105.8 cm/s Mitral E to A Ratio 0.7 MV Deceleration Time 286.0 ms MV E' Velocity 6.8 cm/s Mitral E to MV E' Ratio 11.2 TR Peak Velocity 268.6 cm/s TR Peak Gradient 28.9 mmHg Right Ventricular Systolic Press 33.9 mmHg FINDINGS Left Ventricle Mildly increased left ventricular wall thickness. Left ventricular cavity size normal. Normal left ventricular systolic function with no obvious regional wall motion abnormalities. Left ventricular ejection fraction is estimated at 55 %. Right Ventricle Mild right ventricular dilatation. Mild pulmonary hypertension. Right Atrium Normal right atrial size. Left Atrium Normal left atrial size. Mitral Valve Structurally normal mitral valve. Mild mitral annular calcification. Mild mitral regurgitation. Aortic Valve No aortic valve stenosis or regurgitation. Tricuspid Valve Structurally normal tricuspid valve. Mild tricuspid regurgitation. Pulmonic Valve Trace pulmonic regurgitation. Pericardium No pericardial effusion. Aorta Normal size aortic root and proximal ascending aorta. CONCLUSIONS Normal LV function Mild mitral and tricuspid regurgitation Previewed by: Dr. Cooper Caba MD (Electronically Signed) Final Date: 27 March 2023 17:48
[2023-03-27] MEDS: ATORVASTATIN 40 MG TAB PO SCH (20:38)
[2023-03-28 09:05] LABS: Basophils # (A) 0.03 X 10*3/uL (0.00-0.10); Basophils % (A) 0.3 %; Eosinophils # (A) 0.05 X 10*3/uL (0.04-0.35); Eosinophils % (A) 0.4 %; HGB 13.3 g/dL (13.0-17.0); Lymphocytes # (A) 2.29 X 10*3/uL (0.90-5.00); Lymphocytes % (A) 19.8 %; MCV 85.6 FL (80.0-97.0); Mean Platelet Volume 10.5 FL (9.5-12.2); Monocytes # (A) 1.24 X 10*3/uL (0.20-1.00); Monocytes % (A) 10.7 %; NRBC Per 100 WBC 0 X 10*3/uL (0.00-0.01); Neutrophils # (A) 7.91 X 10*3/uL (1.80-7.70); Neutrophils % (A) 68.4 %; Platelet Count 243 X 10*3/uL (140-440); RBC 4.44 X 10*6/uL (4.40-5.60); RDW 13.8 % (11.5-14.5); WBC 11.57 X 10*3/uL (4.50-10.00)
[2023-03-28 09:36] LABS: BUN/Creat Ratio 10.89 Ratio (12.00-20.00); Blood Urea Nitrogen 9.8 mg/dL (9.0-27.0); Calcium 8.7 mg/dL (8.7-10.3); Carbon Dioxide 24.8 mmol/L (21.6-31.8); Chloride 107 mmol/L (96-109); Glucose 106 mg/dL (70-110); Magnesium 1.9 mg/dL (1.5-2.4); Potassium 3.5 mmol/L (3.5-5.5); Sodium 142 mmol/L (135-145)
[2023-03-28] MEDS: PROCHLORPERAZINE INJ 10 MG/2 ML VIAL IVP PRN (10:09)
[2023-03-28] MEDS: amLODIPine 10 MG TAB PO SCH (10:09)
--- NOTE | 2023-03-28 16:23 | P.PN ---
Subjective Progress Note Date: 03/28/23 Hospital course: Patient is a very pleasant 83-year-old male with a past medical history of hypertension, hyperlipidemia, and BPH. He presented to the emergency department on 03/27/23 secondary to syncope with fall. He underwent full evaluation in the emergency department. Upon arrival vital signs as follows blood pressure 133/84, heart rate 65, respiratory rate 20, temp 97.5F, SpO2 100% on room air. Patient was noted to have episodes of hypertensive urgency with blood pressure reaching as high as 209/81. EKG completed showing sinus bradycardia at 58 bpm with occasional PVC. CT head and cervical spine negative for acute process showing no acute intercranial abnormalities and no acute fracture or subluxation of cervical spine. Chest x-ray negative for acute cardiopulmonary process. X- ray pelvis negative for acute process showing no fracture or dislocation. Labs completed and reviewed. CBC showing mild leukocytosis with WBC count of 13.9 otherwise normal findings. BMP revealing hypokalemia with potassium of 3.2 otherwise normal findings. Glucose 134. Liver profile showing slightly elevated total bili of 1.4 otherwise normal findings. Urinalysis positive for ketones negative for blood or infection. Patient was admitted under our services with consultation to cardiology. Physical exam: Vital signs reviewed and stable. General: Nontoxic, no distress and appears stated age. Derm: Skin warm and dry, normal coloration for ethnicity. Head: Atraumatic, normocephalic and symmetric. Eyes: EOMs intact, no lid lag, and anicteric sclera Mouth: no lip lesions, mucus membranes moist Cardiovascular: regular rate and rhythm with normal S1S2, no murmur, positive posterior tibial pulses bilaterally, and cap refill < 2 seconds. Lungs: Respirations even, regular, and unlabored on room air. Lungs CTA bilaterally, no rhonchi, no rales, no wheezing, and no accessory muscle usage. Abdominal: soft, nontender to palpation, no guarding, no appreciable or ganomegaly Ext: ROM intact. No gross muscle atrophy, no edema, no contractures Neuro: Speech clear, face symmetrical and CN II-XII grossly intact with no noted focal neuro deficits Psych: Alert and oriented to person, place, time, and situation. Appropriate and pleasant affect. Assessment and Plan of Care: Syncope, unclear etiology possibly secondary to orthostatic hypotension Orthostatic hypotension Hypertensive urgency. Resting hypertension with orthostatic hypotension -We will treat resting hypertension with amlodipine 10 mg daily in addition to current medication regimen with atenolol 50 mg daily and lisinopril/hydrochlorothiazide 20/12.5 mg daily. -Order placed for orthostatic vitals. -Telemetry monitoring -Fall precautions -Order placed for ANTONIO hose secondary to positive orthostatic vitals. -Consult placed physical and occupational therapy. -Consult placed to cardiology for syncopal episode and persistent hypertension. -Echocardiogram to be completed. Hypokalemia, resolved Leukocytosis, improved likely resulting from acute stressor, no signs of active infection at this time Chronic conditions: Hyperlipidemia, BPH -Patient to continue with daily medication regimen with atorvastatin 40 mg nightly and Flomax 0.4 mg daily. -If persistent dizziness/lightheadedness and orthostatic hypotension may consider discontinuation of Flomax 0.4 mg daily. Data reviewed: Vital signs reviewed. Blood pressure 167/70, heart rate 63, respiratory rate 17, temp 98.4F, and SpO2 of 98% on room air. Labs completed and reviewed. CBC showing improvement of leukocytosis with WBC count of 11.57 otherwise normal findings. BMP unremarkable. Magnesium normal findings at 1.9. DVT prophylaxis: Lovenox Anticipated discharge date: Clinical course to determine Anticipated discharge place: Clinical course to determine Patient was seen independently by Nurse Pracitioner. This document was prepared using [employer] dictation software. Please allow for errors in cardiovascular technician, while rare they do occur. Objective - Vital Signs Vital signs: Vital Signs Temp 98.4 F 03/28/23 07:18 Pulse 63 03/28/23 07:18 Resp 17 03/28/23 07:18 BP 167/70 03/28/23 07:18 Pulse Ox 98 03/28/23 07:18 FiO2 Intake & Output 03/27/23 03/28/23 03/28/23 18:59 06:59 18:59 Output Total 350 Balance -350 Output: Urine 350 Other: Voiding Method External Catheter Diaper Incontinent # Voids 1 1 # Bowel Movements 1 1 - Labs CBC & Chem 7: 03/28/23 05:22 03/28/23 05:22 Labs: Abnormal Lab Results - Last 24 Hours (Table) 03/27/23 03/28/23 Range/Units 02:41 05:22 WBC 11.57 H (4.50-10.00) X 10*3/uL Hct 38.0 L (39.6-50.0) % Neutrophils # 7.91 H (1.80-7.70) X 10*3/uL Monocytes # 1.24 H (0.20-1.00) X 10*3/uL Urine Ketones 2+ H (Negative)
[2023-03-28 19:10] VITALS: RESP 16
[2023-03-29 08:49] LABS: HGB 12.7 g/dL (13.0-17.0); MCH 29.6 pg (27.0-32.0); MCHC 34.3 g/dL (32.0-37.0); MCV 86.2 FL (80.0-97.0); Mean Platelet Volume 10.4 FL (9.5-12.2); NRBC Per 100 WBC 0 X 10*3/uL (0.00-0.01); Platelet Count 220 X 10*3/uL (140-440); RBC 4.29 X 10*6/uL (4.40-5.60); RDW 13.7 % (11.5-14.5); WBC 9.82 X 10*3/uL (4.50-10.00)
[2023-03-29 08:57] LABS: ALT 18 U/L (10-49); AST 15 U/L (14-35); Albumin 3.5 g/dL (3.8-4.9); Alkaline Phosphatase 71 U/L (41-126); Blood Urea Nitrogen 8.8 mg/dL (9.0-27.0); Calcium 9.1 mg/dL (8.7-10.3); Carbon Dioxide 27.9 mmol/L (21.6-31.8); Chloride 106 mmol/L (96-109); Globulin 1.4 g/dL (1.6-3.3); Glucose 103 mg/dL (70-110); Potassium 3.5 mmol/L (3.5-5.5); Sodium 143 mmol/L (135-145); Total Bilirubin 1.1 mg/dL (0.3-1.2); Total Protein 4.9 g/dL (6.2-8.2)
--- NOTE | 2023-03-29 10:33 | P.CRDCN ---
History of Present Illness History of present illness: HISTORY OF PRESENT ILLNESS: This is a 83-year-old male with a past medical history significant for hypertension, hyperlipidemia, and former nicotine dependence. Patient does not follow with a bellstaff. We have been asked to see the patient in consultation for hypertension and syncope. Patient examined at the bedside. Patients family members at the bedside. She states that the patient was admitted to the hospital last week secondary to pancreatitis. He was discharged home in stable condition. The patient was in the bathroom at home and when he got up he began to feel lightheaded. He attempted to grab the bathroom door handle to stabilize himself however he fell to the ground. The patient states he believes he lost consciousness. His blood pressures have been elevated since admission to the hospital. He was started on amlodipine per primary medicine. Orthostatic blood pressures obtained yesterday reveal a drop in systolic blood pressure from 190 to 160s. * EKG reveals sinus bradycardia with PVCs. Intraventricular conduction delay. * Chest xray negative for acute process * Laboratory data: D-dimer 1.70. Troponin negative 1. * Echocardiogram completed revealing ejection fraction 55% with mild mitral regurgitation and mild tricuspid regurgitation REVIEW OF SYSTEMS: At the time of my exam: CONSTITUTIONAL: Denies fever or chills. HEENT: Denies blurred vision, vision changes, or eye pain. Denies hemoptysis CARDIOVASCULAR: Denies chest pain. Denies orthopnea. Denies PND. Denies palpitations RESPIRATORY: Denies shortness of breath. GASTROINTESTINAL: Denies abdominal pain. Denies nausea or vomiting. HEMATOLOGIC: Denies bleeding disorders. GENITOURINARY: Denies any blood in urine. SKIN: Denies pruitis. Denies rash. PHYSICAL EXAM: VITAL SIGNS: Reviewed. GENERAL: Well-developed in no acute distress. HEENT: Head is normocephalic. Pupils are equal, round. Sclerae anicteric. Mucous membranes of the mouth are moist. Neck supple. No JVD or thyromegaly LUNGS: Respirations even and unlabored. Lungs essentially clear to auscultation bilaterally. HEART: Regular rate and rhythm. S1 and S2 heard. ABDOMEN: Soft. Nondistended. Nontender. EXTREMITIES: Normal range of motion. No clubbing or cyanosis. Peripheral pulses intact. No lower extremity edema NEUROLOGIC: Awake and alert. Oriented x 3. ASSESSMENT: Syncope, may be secondary to vasovagal or orthostatic changes Recent hospitalization for pancreatitis Hypertension, uncontrolled Hyperlipidemia Former nicotine dependence PLAN: 2-D echo obtained and reviewed Continue current cardiac medications Patient has been started on amlodipine per primary medicine Continue to monitor blood pressure Continue telemetry monitoring Further recommendations pending patient's course Nurse practitioner note has been reviewed by physician. Signing provider agrees with the documented findings, assessment, and plan of care. Past Medical History Past Medical History: Hyperlipidemia, Hypertension Additional Past Medical History / Comment(s): kidney stones, Back pain, fall syncope, pancreatitis History of Any Multi-Drug Resistant Organisms: None Reported Past Surgical History: No Surgical Hx Reported Past Psychological History: No Psychological Hx Reported Smoking Status: Former smoker Past Alcohol Use History: None Reported Past Drug Use History: None Reported - Past Family History Mother Additional Family Medical History / Comment(s): Brain surgery for removal of tumor-patient never recovered. Father Family Medical History: Prostate Disorder Additional Family Medical History / Comment(s): Prostate cancer. Urostomy. Medications and Allergies Home Medications Medication Instructions Recorded Confirmed Type Atorvastatin Calcium [Lipitor] 40 mg PO HS 11/25/22 03/27/23 History Meloxicam [Mobic] 15 mg PO DAILY 11/25/22 03/27/23 History Omeprazole [PriLOSEC] 20 mg PO DAILY 11/25/22 03/27/23 History atenoloL [Tenormin] 50 mg PO DAILY 11/25/22 03/27/23 History Benazepril/Hydrochlorothiazide 1 tab PO DAILY 03/23/23 03/27/23 History [Benazepril-Hctz 20-12.5 mg Tab] Cyclobenzaprine [Flexeril] 5 - 10 mg PO HS PRN 03/23/23 03/27/23 History Donepezil 23mg 23 mg PO DAILY 03/23/23 03/27/23 History Ferrous Sulfate [Feosol] 325 mg PO DAILY 03/23/23 03/27/23 History Tamsulosin [Flomax] 0.4 mg PO DAILY 03/23/23 03/27/23 History Ondansetron Odt [Zofran ODT] 4 mg PO Q8HR PRN #15 tab 03/26/23 03/27/23 Rx Allergies Allergy/AdvReac Type Severity Reaction Status Date / Time No Known Allergies Allergy Verified 03/27/23 06:57 Physical Exam Vitals: Vital Signs Temp Pulse Pulse Pulse Pulse Resp BP 03/29/23 02:00 98.3 F 73 16 145/79 03/28/23 20:00 16 03/28/23 19:01 97.8 F 57 L 16 157/67 03/28/23 12:16 98.0 F 97 17 194/83 03/28/23 10:19 59 L 62 55 L 03/28/23 10:16 190/80 BP Pulse Ox 03/29/23 02:00 95 03/28/23 20:00 03/28/23 19:01 97 03/28/23 12:16 03/28/23 10:19 03/28/23 10:16 169/79 Intake and Output 03/28/23 03/29/23 03/29/23 22:59 06:59 14:59 Intake Total 825 Balance 825 Intake: Intake, IV Titration 825 Amount Sodium Chloride 0.9% 1, 825 000 ml @ 75 mls/hr IV . [id number] [facility] Rx#:[id number] Other: Voiding Method Bedside Commode Diaper # Voids 0 2 # Bowel Movements 0 Results 03/29/23 04:31 03/29/23 04:31 CBC 03/28/23 Range/Units 05:22 WBC 11.57 H (4.50-10.00) X 10*3/uL RBC 4.44 (4.40-5.60) X 10*6/uL Hgb 13.3 (13.0-17.0) g/dL Hct 38.0 L (39.6-50.0) % Plt Count 243 (140-440) X 10*3/uL Comprehensive Metabolic Panel 03/28/23 Range/Units 05:22 Sodium 142 (135-145) mmol/L Potassium 3.5 (3.5-5.5) mmol/L Chloride 107 (96-109) mmol/L Carbon Dioxide 24.8 (21.6-31.8) mmol/L BUN 9.8 (9.0-27.0) mg/dL Creatinine 0.9 (0.6-1.5) mg/dL Glucose 106 (70-110) mg/dL Calcium 8.7 (8.7-10.3) mg/dL Current Medications Generic Name Dose Route Start Last Admin Trade Name Freq PRN Reason Stop Dose Admin Acetaminophen 650 mg 03/27/23 12:21 03/27/23 12:33 Acetaminophen Tab 325 Mg Tab PO 650 mg Q6HR PRN Administration Fever and/ or Pain Amlodipine Besylate 10 mg 03/28/23 10:00 03/29/23 08:15 Amlodipine 10 Mg Tab PO 10 mg DAILY LATESHA Administration Atenolol 50 mg 03/27/23 11:00 03/29/23 08:15 Atenolol 50 Mg Tab PO 50 mg DAILY LATESHA Administration Atorvastatin Calcium 40 mg 03/27/23 21:00 03/28/23 19:57 Atorvastatin 40 Mg Tab PO 40 mg HS LATESHA Administration Donepezil HCl 10 mg 03/27/23 11:00 03/29/23 08:15 Donepezil 10 Mg Tab PO 10 mg DAILY LATESHA Administration Enoxaparin Sodium 40 mg 03/27/23 09:00 03/29/23 08:15 Enoxaparin 40 Mg/0.4 Ml Syringe SQ 40 mg DAILY LATESHA Administration Ferrous Sulfate 325 mg 03/27/23 11:00 03/29/23 08:15 Ferrous Sulfate 325 Mg Tab PO 325 mg DAILY LATESHA Administration Lisinopril/HCTZ 1 each 03/27/23 11:00 03/29/23 08:15 Lisinopril-Hctz 20-12.5 Mg 1 Each Tab PO 1 each DAILY LATESHA Administration Naloxone HCl 0.2 mg 03/27/23 04:48 Naloxone 0.4 Mg/Ml 1 Ml Vial IV Q2M PRN Opioid Reversal Pantoprazole Sodium 40 mg 03/27/23 11:00 03/29/23 08:15 Pantoprazole 40 Mg Tablet PO 40 mg AC-BRKFST LATESHA Administration Prochlorperazine Edisylate 10 mg 03/28/23 09:49 03/29/23 08:19 Prochlorperazine Inj 10 Mg/2 Ml Vial IVP 10 mg Q6HR PRN Administration Nausea And Vomiting Tamsulosin HCl 0.4 mg 03/27/23 11:00 03/29/23 08:15 Tamsulosin 0.4 Mg Cap.Er.24h PO 0.4 mg DAILY LATESHA Administration Intake and Output 03/28/23 03/29/23 03/29/23 22:59 06:59 14:59 Intake Total 825 Balance 825 Intake: Intake, IV Titration 825 Amount Sodium Chloride 0.9% 1, 825 000 ml @ 75 mls/hr IV . [id number] [facility] Rx#:[id number] Other: Voiding Method Bedside Commode Diaper # Voids 0 2 # Bowel Movements 0 03/28/23 05:22 03/28/23 05:22
--- NOTE | 2023-03-29 12:34 | CT ---
EXAMINATION TYPE: CT angio chest CT DLP: 228.2 mGycm, Automated exposure control for dose reduction was used. DATE OF EXAM: 03/29/2023 12:05 PM COMPARISON: Chest radiograph from 03/27/2023. CLINICAL INDICATION:Male, 83 years old with history of Elevated d-dimer, rule out PE; Elevated d-dime r, rule out PE TECHNIQUE/CONTRAST: CTA scan of the thorax is performed with IV Contrast, patient injected with 100ml mL of Isovue 370, M IP images are created and reviewed these are created on a separate workstation.. FINDINGS: Pulmonary Artery: There is no evidence for a filling defect within the pulmonary vasculature to sugge st acute pulmonary embolism. The pulmonary artery is of normal size. Lungs/Pleura: No evidence of focal consolidation, pleural effusion or pneumothorax. Left upper lung c alcified granuloma series 5 image 56. Airway: Large airways are patent. Heart: Heart is within normal limits for size. Vasculature: No evidence of aortic aneurysm. Mediastinum: No gross evidence of adenopathy. Musculoskeletal: Moderate degenerative disc disease changes are present throughout the thoracolumbar spine. Soft Tissues: Unremarkable. Lower neck: No significant findings. Upper Abdomen: No significant findings. IMPRESSION: 1. No evidence of pulmonary embolism. 2. No evidence for acute thoracic process.
[2023-03-29 14:16] VITALS: BP 136/73; PULSE 58; TEMP 97.7
--- NOTE | 2023-03-29 15:52 | P.DS ---
Providers Date of admission: 03/27/23 05:12 Expected date of discharge: 03/29/23 Attending physician: Stacey Baxter MD Consults: 03/28/23 16:06 Consult Physician Routine Consulting Provider: Claudio Jones Consult Reason/Comments: syncope and hypertensive urgency Do you want consulting provider notified?: Yes Primary care physician: [facility] Course: Discharge Diagnosis: Syncope, unclear etiology possibly secondary to orthostatic hypotension Orthostatic hypotension Hypokalemia, resolved Leukocytosis, resolved Hyperlipidemia BPH Hospital Course: Patient is a very pleasant 83-year-old male with a past medical history of hypertension, hyperlipidemia, and BPH. He presented to the emergency department on 03/27/23 secondary to syncope with fall. He underwent full evaluation in the emergency department. Upon arrival vital signs as follows blood pressure 133/84, heart rate 65, respiratory rate 20, temp 97.5F, SpO2 100% on room air. Patient was noted to have episodes of hypertensive urgency with blood pressure reaching as high as 209/81. EKG completed showing sinus bradycardia at 58 bpm with occasional PVC. CT head and cervical spine negative for acute process showing no acute intercranial abnormalities and no acute fracture or subluxation of cervical spine. Chest x-ray negative for acute cardiopulmonary process. X- ray pelvis negative for acute process showing no fracture or dislocation. Labs completed and reviewed. CBC showing mild leukocytosis with WBC count of 13.9 otherwise normal findings. BMP revealing hypokalemia with potassium of 3.2 otherwise normal findings. Glucose 134. Liver profile showing slightly elevated total bili of 1.4 otherwise normal findings. Urinalysis positive for ketones negative for blood or infection. Patient was admitted under our services with consultation to cardiology. Patient with persistent uncontrolled hypertension with Hypertensive urgency with systolic pressures greater than 200. Patient was found to have resting hypertension with orthostatic hypotension. Resting hypertension treated with amlodipine 10 mg daily in addition to patient's current medication regimen with atenolol 50 mg daily and lisinopril/hydrochlorothiazide 20/12.5 mg daily. Echocardiogram was completed showing a preserved EF of 55% with mild mitral and tricuspid regurgitation otherwise no significant valvular or structural abnormalities reported. Patient was evaluated by cardiology whom ordered a d-dimer which resulted elevated at 1.70. Patient was taken for a CTA chest to rule out pulmonary emboli,. CTA was completed showing no evidence of pulmonary embolism and no evidence of acute intrathoracic process. Patient cleared from cardiology standpoint recommending outpatient follow-up in their office. Patient currently free from any complaints or needs at this time. He is medically stable for discharge. Vital signs stabilized and showing much better controlled blood pressure of 136/73, heart rate 58, respiratory rate 16, temp 97.7F, SpO2 is 97% on room air. Patient medically stable for discharge at this time, he is being discharged to alf facility for rehab. Patient has been accepted to [facility]. Physical exam: Vital signs reviewed and stable. General: Nontoxic, no distress and appears stated age. Derm: Skin warm and dry, normal coloration for ethnicity. Head: Atraumatic, normocephalic and symmetric. Eyes: EOMs intact, no lid lag, and anicteric sclera Mouth: no lip lesions, mucus membranes moist Cardiovascular: regular rate and rhythm with normal S1S2, no murmur, positive posterior tibial pulses bilaterally, and cap refill < 2 seconds. Lungs: Respirations even, regular, and unlabored on room air. Lungs CTA bilaterally, no rhonchi, no rales, no wheezing, and no accessory muscle usage. Abdominal: soft, nontender to palpation, no guarding, no appreciable organomegaly Ext: ROM intact. No gross muscle atrophy, no edema, no contractures Neuro: Speech clear, face symmetrical and CN II-XII grossly intact with no noted focal neuro deficits Psych: Alert and oriented to person, place, time, and situation. Appropriate and pleasant affect. A total of 35 minutes of time were spent preparing this complex discharge summary. Pt was discharged on 03/29/23 at 3:41 PM. Patient was seen independently by Nurse Practitioner. This document was prepared using [employer] dictation software. Please allow for errors in social services coordinator while rare they do occur. Patient Condition at Discharge: Stable Plan - Discharge Summary Discharge Rx Participant: No New Discharge Prescriptions: New Pantoprazole [Protonix] 40 mg PO AC-BRKFST tab amLODIPine [Norvasc] 10 mg PO DAILY 90 Days #90 tab Acetaminophen Tab [Tylenol] 650 mg PO Q6HR PRN tab PRN Reason: Fever And/ Or Pain Continue atenoloL [Tenormin] 50 mg PO DAILY Meloxicam [Mobic] 15 mg PO DAILY Tamsulosin [Flomax] 0.4 mg PO DAILY Cyclobenzaprine [Flexeril] 5 - 10 mg PO HS PRN PRN Reason: Muscle Spasm Donepezil 23mg 23 mg PO DAILY Ondansetron Odt [Zofran ODT] 4 mg PO Q8HR PRN #15 tab PRN Reason: Nausea Atorvastatin Calcium [Lipitor] 40 mg PO HS Benazepril/Hydrochlorothiazide [Benazepril-Hctz 20-12.5 mg Tab] 1 tab PO DAILY Ferrous Sulfate [Feosol] 325 mg PO DAILY Discontinued Omeprazole [PriLOSEC] 20 mg PO DAILY Discharge Medication List Atorvastatin Calcium [Lipitor] 40 mg PO HS 11/25/22 [History] Meloxicam [Mobic] 15 mg PO DAILY 11/25/22 [History] atenoloL [Tenormin] 50 mg PO DAILY 11/25/22 [History] Benazepril/Hydrochlorothiazide [Benazepril-Hctz 20-12.5 mg Tab] 1 tab PO DAILY 03/23/23 [History] Cyclobenzaprine [Flexeril] 5 - 10 mg PO HS PRN 03/23/23 [History] Donepezil 23mg 23 mg PO DAILY 03/23/23 [History] Ferrous Sulfate [Feosol] 325 mg PO DAILY 03/23/23 [History] Tamsulosin [Flomax] 0.4 mg PO DAILY 03/23/23 [History] Ondansetron Odt [Zofran ODT] 4 mg PO Q8HR PRN #15 tab 03/26/23 [Rx] Acetaminophen Tab [Tylenol] 650 mg PO Q6HR PRN tab 03/29/23 [Rx] Pantoprazole [Protonix] 40 mg PO AC-BRKFST tab 03/29/23 [Rx] amLODIPine [Norvasc] 10 mg PO DAILY 90 Days #90 tab 03/29/23 [Rx] Follow up Appointment(s)/Referral(s): Elmer Kat MD [Primary Care Provider] - 1-2 days Cooper Caba MD [STAFF PHYSICIAN] - 1 Week Activity/Diet/Wound Care/Special Instructions: Activity: As tolerated. Take breaks as needed. Change positions slowly from a lying to sitting, sitting to standing, and standing before walking. Diet: Heart healthy and carb consistent diet. Avoid salts, or foods with hidden salts such as canned or boxed foods and frozen dinners. Extra salt makes your heart work harder and traps the fluid in your body for longer. Special Instructions: Take all of your medications as directed and remember to keep all of your doctor's appointments and follow-up as needed. Thank you for allowing us to participate in your care, it was truly a pleasure having you for our patient!!! Discharge Disposition: TRANSFER TO SNF/ECF
== END 2023-03-29 18:00 | DRG 312 ==
LOC: EC 02:15 → 5NMEDONC 05:12
PROVIDERS: ADMIT Internal Medicine; ATTEND Internal Medicine
DX: I95.1 Orthostatic hypotension (principal); I45.89 Other specified conduction disorders; I10 Essential (primary) hypertension; I16.0 Hypertensive urgency; D72.828 Other elevated white blood cell count; E78.5 Hyperlipidemia, unspecified; S01.511A Laceration without foreign body of lip, initial encounter; I08.1 Rheumatic disorders of both mitral and tricuspid valves; N40.0 Benign prostatic hyperplasia without lower urinary tract symptoms; R00.1 Bradycardia, unspecified; E87.6 Hypokalemia; E86.0 Dehydration; S00.81XA Abrasion of other part of head, initial encounter; W19.XXXA Unspecified fall, initial encounter; Y92.002 Bathroom of unspecified non-institutional (private) residence as the place of occurrence of the external cause; Z79.899 Other long term (current) drug therapy; Z79.1 Long term (current) use of non-steroidal anti-inflammatories (NSAID); Z87.19 Personal history of other diseases of the digestive system; Z87.891 Personal history of nicotine dependence
CPT/HCPCS: 36415; 70450; 71045; 71275; 72125; 72170; 80048; 80053; 81003; 83690; 83735; 84484; 85025; 85027; 85379; 93005; 93306; 96361; 96374; 99285

== ENCOUNTER → 2023-06-14 | Outpatient (CLI) | payer MEDICARE ==
--- NOTE | 2023-06-15 12:26 | MR ---
EXAMINATION TYPE: MR pancreas wo/w con DATE OF EXAM: 06/14/2023 10:45 AM CLINICAL INDICATION:Male, 83 years old with history of R10.13 EPIGASTRIC PAIN; PHH, Stomach pain COMPARISON: CT scan abdomen from 03/29/2023, CT abdomen pelvis 03/23/2023, 10/20/2015. TECHNIQUE: Multiplanar multi-sequence imaging was performed without contrast. Post contrast imaging was performed. Post IV contrast subtraction images were also submitted for review. IV Contrast: 6.5 cc Gadavist FINDINGS: LOWER CHEST: No gross irregularity. ABDOMEN Liver: No evidence for hepatic steatosis or cirrhosis. Scattered high T2 signal probable cysts. No ab normal postcontrast enhancement. Gallbladder and Bile ducts: No evidence for ductal dilation, or biliary stricture or evidence of chol edocholithiasis. The gallbladder is within normal limits. Pancreas: No ductal dilation. No evidence for solid mass. Spleen: Normal for size. Adrenal glands: Unremarkable. Kidneys: No evidence for obstructive uropathy. No suspicious renal masses.r cyst in the right mid kid damaris measuring 26 mm. No obstructive uropathy. Intrinsic high T1 signal cysts in the superior right ki dney measuring 17 mm. Stomach and Bowel: Masslike area within the hepatic flexure of the transverse colon and multiple prio rs with findings suspicious for intussusception. No evidence for bowel wall thickening or evidence fo r obstruction.. Peritoneum: No evidence of pneumoperitoneum or free fluid. Vasculature: No aortic aneurysm. Musculoskeletal: The osseous structures appear intact. Lymph Nodes: No gross evidence for lymphadenopathy. Abdominal wall: Unremarkable. IMPRESSION: 1. Masslike area within the transverse colon with at least underlying intussusception mass as a lead point not entirely excluded. Poorly evaluated due to respiratory motion. Direct visualization recomm ended. 2. No evidence for pancreatic mass. 3. 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 Findings communicated to Ana Cook on 06/15/2023 12:[address] Santos Matson via [employer].
== END | disposition home or self-care (01) ==
LOC: RADMRIMAIN 09:29
PROVIDERS: ATTEND Internal Medicine Gastroenterology
DX: N28.1 Cyst of kidney, acquired (principal); R10.13 Epigastric pain
CPT/HCPCS: 74183; A9585

== ENCOUNTER 2023-06-23 06:42 | Day surgery (SDC) | payer MEDICARE ==
[~2023-06-23 06:42] MED LIST: LACTATED RINGERS 1,000 ML IV SCH
[2023-06-23] MEDS ORDERED: ONDANSETRON 4 MG/2 ML VIAL IVP PRN (07:00)
[2023-06-23] MEDS: LACTATED RINGERS 1,000 ML IV ONE (07:08)
[2023-06-23 07:38] VITALS: TEMP 98.1
[2023-06-23] MEDS ORDERED: LIDOCAINE 1% INJ 10MG/ML (20 ML MDV) ONE (07:54)
[2023-06-23] MEDS ORDERED: PROPOFOL 10 MG/ML 20 ML VIAL IV ONE (07:54)
[2023-06-23] MEDS: IV FLUID CONTINUATION 1,000 ML IV ONE (08:22)
--- NOTE | 2023-06-23 08:23 | P.PCN ---
Date of Procedure: 06/23/23 Procedure(s) Performed: Brief history: Patient is a pleasant 23-year-old white male scheduled for an elective upper endoscopy as well as colonoscopy as a part of evaluation of epigastric pain, chronic diarrhea and progressive weight 270 pounds in the last 6 months duration Procedure performed: Esophagogastroduodenoscopy biopsy Colonoscopy random biopsies, snare polypectomy and tattooing with Adriana ink Preoperative diagnosis: Gastric pain Chronic diarrhea and weight loss Anesthesia: MAC Procedure: After informed consent was obtained from the patient was brought into the endoscopy unit and IV sedation was administered by anesthesia under continuous monitoring. Initially upper endoscopy was done. The Olympus GF 160 video endoscope was inserted inserted into the mouth and esophagus intubated without any difficulty and was gradually advanced into the stomach and duodenum and carefully examined. The bulb and second part of the duodenum appeared normal. His were done from the duodenum to rule out celiac disease. The scope was then withdrawn into the stomach adequately insufflated with air and upon careful examination the antrum had mild gastritis and biopsies were done from this area. Mucosa of the body, cardia and fundus appeared normal. The scope was then withdrawn into the esophagus. The GE junction was located at 40 cm to the incisors. It appeared regular with no erythema erosions or ulcerations. Rest of the esophagus appeared normal. Patient tolerated the procedure well. At this time the patient continued to remain sedation. Initial digital rectal examination was normal. Olympus CF 160 video colonoscope was then inserted into the rectum and gradually advanced to the cecum without any difficulty. Careful examination was performed as the scope was gradually being withdrawn. The prep was excellent. Terminal ileum was intubated and appeared normal. The cecum, ascending colon, normal. In the hepatic flexure there was a large 5 cm round polyp almost occupying the entire lumen with somewhat broad base status post partial snare polypectomy and approximately 10% the polyp was removed. Following this tattooing was performed with Adriana ink. As of the transverse colon, descending colon, sigmoid colon and rectum appeared normal. Biopsies were done from ascending and descending colon to rule out microscopic/collagenous colitis scattered sigmoid diverticulosis. Retroflexion was performed in the rectum and grade 2 internal hemorrhoids were noted. Patie nt tolerated the procedure well. Impression: 1. Upper endoscopy revealed mild antral gastritis but no evidence of esophagitis or peptic ulcer disease 2. Colonoscopy revealed a 5 cm round large polyp in the hepatic flexure almost occupying the entire lumen, status post partial snare polypectomy followed by tattooing with Adriana ink,, scattered sigmoid diverticulosis and grade 2 internal hemorrhoids Recommendations: Findings of this examination were discussed with the patient as well as his family. He was advised to follow up with the biopsy results. He will be seen in office in next week and based the biopsy results and further management plans will be made..
[2023-06-23 08:46] VITALS: BP 130/58; PULSE 56; RESP 18
== END 2023-06-23 08:54 | disposition home or self-care (01) ==
LOC: ORWHC2ENDO 06:42
PROVIDERS: ATTEND Internal Medicine Gastroenterology
DX: K29.50 Unspecified chronic gastritis without bleeding (principal); K31.A11 Gastric intestinal metaplasia without dysplasia, involving the antrum; D12.3 Benign neoplasm of transverse colon; K64.1 Second degree hemorrhoids; K57.30 Diverticulosis of large intestine without perforation or abscess without bleeding; K52.9 Noninfective gastroenteritis and colitis, unspecified; I10 Essential (primary) hypertension; E78.5 Hyperlipidemia, unspecified; Z87.442 Personal history of urinary calculi; K85.90 Acute pancreatitis without necrosis or infection, unspecified; K21.9 Gastro-esophageal reflux disease without esophagitis; Z79.899 Other long term (current) drug therapy
CPT/HCPCS: 88305; 88342; 45380; 45385; 43239; 45381; J2001; J2704

== ENCOUNTER 2024-02-15 13:15 | Emergency (ER) | payer MEDICARE ==
[2024-02-15 13:45] VITALS: PULSE 68; RESP 16
--- NOTE | 2024-02-15 14:16 | ED ---
General Adult HPI - General Chief complaint: Abdominal Pain Stated complaint: Poss Fever/Shakes Time Seen by Provider: 02/15/24 14:00 Source: patient, family, RN notes reviewed Mode of arrival: wheelchair - History of Present Illness Initial comments: 83-year-old male presenting to the ER for shakiness. States he has had shakiness over the past several months with cough, nasal congestion, lower abdominal pain, and diarrhea. States the symptoms are chronic in nature, however reports that shakiness worsened this morning. He does report they worsened after he received his flu shot at his PCP this morning. Denies fevers, vomiting. States he is currently asymptomatic besides the chills. He has never had this before. He did have a colonoscopy last week with Dr. Caba which returned negative. States the symptoms started long before this procedure. Denies any medical conditions. Denies blood thinners. - Related Data Home Medications Medication Instructions Recorded Confirmed Atorvastatin Calcium [Lipitor] 40 mg PO HS 11/25/22 06/23/23 Meloxicam [Mobic] 15 mg PO DAILY 11/25/22 06/23/23 atenoloL [Tenormin] 50 mg PO DAILY 11/25/22 06/23/23 Benazepril/Hydrochlorothiazide 1 tab PO DAILY 03/23/23 06/23/23 [Benazepril-Hctz 20-12.5 mg Tab] Cyclobenzaprine [Flexeril] 5 - 10 mg PO HS PRN 03/23/23 06/23/23 Donepezil 23mg 23 mg PO DAILY 03/23/23 06/23/23 Ferrous Sulfate [Feosol] 325 mg PO DAILY 03/23/23 06/23/23 Previous Rx's Medication Instructions Recorded Ondansetron Odt [Zofran ODT] 4 mg PO Q8HR PRN #15 tab 03/26/23 amLODIPine [Norvasc] 10 mg PO DAILY 90 Days #90 tab 03/29/23 Allergies Allergy/AdvReac Type Severity Reaction Status Date / Time No Known Allergies Allergy Verified 02/15/24 13:44 Review of Systems ROS Statement: Those systems with pertinent positive or pertinent negative responses have been documented in the HPI. ROS Other: All systems not noted in ROS Statement are negative. Past Medical History Past Medical History: GERD/Reflux, Hyperlipidemia, Hypertension, Memory Impairment Additional Past Medical History / Comment(s): kidney stones, back pain, fall syncope, pancreatitis History of Any Multi-Drug Resistant Organisms: None Reported Past Surgical History: No Surgical Hx Reported Additional Past Surgical History / Comment(s): egd/colonoscopy 2018 Past Anesthesia/Blood Transfusion Reactions: No Reported Reaction Past Psychological History: No Psychological Hx Reported Smoking Status: Former smoker - Past Family History Mother Additional Family Medical History / Comment(s): Brain surgery for removal of tumor-patient never recovered. Father Family Medical History: Prostate Disorder Additional Family Medical History / Comment(s): Prostate cancer. Urostomy. General Exam General appearance: alert, in no apparent distress, other (There is a resting tremor in bilateral upper extremities) Head exam: Present: atraumatic, normocephalic, normal inspection Eye exam: Present: normal appearance, PERRL, EOMI. Absent: scleral icterus, conjunctival injection, periorbital swelling ENT exam: Present: normal exam, mucous membranes moist Neck exam: Present: normal inspection. Absent: tenderness, meningismus, lymphadenopathy Respiratory exam: Present: normal lung sounds bilaterally. Absent: respiratory distress, wheezes, rales, rhonchi, stridor Cardiovascular Exam: Present: regular rate, normal rhythm, normal heart sounds. Absent: systolic murmur, diastolic murmur, rubs, gallop, clicks GI/Abdominal exam: Present: soft, normal bowel sounds. Absent: distended, tenderness, guarding, rebound, rigid Neurological exam: Present: alert, oriented X3, CN II-XII intact Psychiatric exam: Present: normal affect, normal mood Skin exam: Present: warm, dry, intact, normal color. Absent: rash Course Vital Signs 02/15/24 02/15/24 02/15/24 13:42 13:44 16:18 Temperature 97.6 F 97.3 F L 97.9 F Pulse Rate 57 L 68 68 Respiratory 18 16 16 Rate Blood Pressure 109/47 137/58 131/78 O2 Sat by Pulse 100 99 99 Oximetry EKG Findings - EKG Results: EKG: interpreted by ERMD (EKG reveals sinus bradycardia with widened QRS complexes. Ventricular rate 55 bpm, KS interval 191, QRS duration 130, QT/QTc 478/467) Medical Decision Making - Medical Decision Making Was pt. sent in by a medical professional or institution (MEGHAN Cali, DIRECTOR TRANSPORTATION, urgent care, hospital, or detention...) When possible be specific @ -No Did you speak to anyone other than the patient for history (EMS, parent, family, police, friend...)? What history was obtained from this source @ -Family supplements history Did you review nursing and triage notes (agree or disagree)? Why? @ -I reviewed and agree with nursing and triage notes Were old charts reviewed (outside hosp., previous admission, EMS record, old EKG, old radiological studies, urgent care reports/EKG's, detention records)? Report findings @ -No old charts were reviewed Differential Diagnosis (chest pain, altered mental status, abdominal pain women, abdominal pain men, vaginal bleeding, weakness, fever, dyspnea, syncope, headache, dizziness, GI bleed, back pain, seizure, CVA, palpatations, mental health, musculoskeletal)? @ -Essential tremor, postvaccine symptoms, anemia, arrhythmia, ACS, pneumonia, COVID EKG interpreted by me (3pts min.). @ -As above X-rays interpreted by me (1pt min.). @ -Chest x-ray reveals no acute process CT interpreted by me (1pt min.). @ -None done U/S interpreted by me (1pt. min.). @ -None done What testing was considered but not performed or refused? (CT, X-rays, U/S, labs)? Why? @ -None What meds were considered but not given or refused? Why? @ -None Did you discuss the management of the patient with other professionals (professionals i.e. MEGHAN Cali, DIRECTOR TRANSPORTATION, lab, RT, psych nurse, outreach and education social worker, geothermal operations engineer, teacher, aboriginal home school liaison officer, manager case management)? Give summary @ -No Was smoking cessation discussed for >3mins.? @ -No Was critical care preformed (if so, how long)? @ -No Were there social determinants of health that impacted care today? How? (Homelessness, low income, unemployed, alcoholism, drug addiction, transportation, low edu. Level, literacy, decrease access to med. care, senior living, rehab)? @ -No Was there de-escalation of care discussed even if they declined (Discuss DNR or withdrawal of care, Hospice)? DNR status @ -No What co-morbidities impacted this encounter? (DM, HTN, Smoking, COPD, CAD, Cancer, CVA, ARF, Chemo, Hep., AIDS, mental health diagnosis, sleep apnea, morbid obesity)? @ -None Was patient admitted / discharged? Hospital course, mention meds given and route, prescriptions, significant lab abnormalities, going to OR and other pertinent info. @ -Discharged. This is a 83-year-old male presenting for shakiness for 3 months that is worsening today status post flu vaccine. Denies chest pain, shortness of breath. Vital signs are within acceptable limits, no acute distress. Lab work including CBC, CMP, coags, troponin, remarkable for lactic 2.2, otherwise unremarkable. Chest x-ray was no acute process. EKG reveals sinus bradycardia with no ST changes. Cepheid negative. Findings were discussed with patient and family. There does not appear to be emergent etiology causing symptoms today. Advised close follow-up with PCP for further workup. Return precautions discussed, patient and family are agreeable to plan. Case was discussed with my ED attending Dr. Jolley. Patient discharged in stable condition. Undiagnosed new problem with uncertain prognosis? @ -No Drug Therapy requiring intensive monitoring for toxicity (Heparin, Nitro, Insulin, Cardizem)? @ -No Were any procedures done? @ -No Diagnosis/symptom? @ -Shakiness Acute, or Chronic, or Acute on Chronic? @ -Chronic Uncomplicated (without systemic symptoms) or Complicated (systemic symptoms)? @ -Uncomplicated Side effects of treatment? @ -No Exacerbation, Progression, or Severe Exacerbation? @ -No Poses a threat to life or bodily function? How? (Chest pain, [place], [place], pneumonia, PE, COPD, DKA, ARF, appy, cholecystitis, CVA, Diverticulitis, Homicidal, Suicidal, threat to staff... and all critical care pts) @ -No - Lab Data Result diagrams: 02/15/24 14:10 02/15/24 14:10 Lab Results 02/15/24 02/15/24 02/15/24 Range/Units 14:10 14:10 14:10 WBC 7.5 (3.8-10.6) k/uL RBC 4.16 L (4.30-5.90) m/uL Hgb 12.4 L (13.0-17.5) gm/dL Hct 37.7 L (39.0-53.0) % MCV 90.8 (80.0-100.0) fL MCH 29.8 (25.0-35.0) pg MCHC 32.8 (31.0-37.0) g/dL RDW 13.5 (11.5-15.5) % Plt Count 226 (150-450) k/uL MPV 7.8 Neutrophils % 81 % Lymphocytes % 13 % Monocytes % 4 % Eosinophils % 0 % Basophils % 0 % Neutrophils # 6.0 (1.3-7.7) k/uL Lymphocytes # 1.0 (1.0-4.8) k/uL Monocytes # 0.3 (0-1.0) k/uL Eosinophils # 0.0 (0-0.7) k/uL Basophils # 0.0 (0-0.2) k/uL PT 11.6 (10.0-12.5) sec INR 1.1 (<1.2) APTT 24.0 (22.0-30.0) sec Sodium 141 (137-145) mmol/L Potassium 3.9 (3.5-5.1) mmol/L Chloride 108 H (98-107) mmol/L Carbon Dioxide 23 (22-30) mmol/L Anion Gap 10 mmol/L BUN 18 (9-20) mg/dL Creatinine 1.16 (0.66-1.25) mg/dL Est GFR (CKD-EPI)AfAm 67 (>60 ml/min/1.73 sqM) Est GFR (CKD-EPI)NonAf 58 (>60 ml/min/1.73 sqM) Glucose 202 H (74-99) mg/dL Plasma Lactic Acid Adams (0.7-2.0) mmol/L Calcium 9.6 (8.4-10.2) mg/dL Total Bilirubin 1.0 (0.2-1.3) mg/dL AST 21 (17-59) U/L ALT 19 (4-49) U/L Alkaline Phosphatase 70 (38-126) U/L Troponin I (0.000-0.034) ng/mL Total Protein 6.1 L (6.3-8.2) g/dL Albumin 4.1 (3.5-5.0) g/dL Influenza Type A (PCR) (Not Detectd) Influenza Type B (PCR) (Not Detectd) RSV (PCR) (Not Detectd) SARS-CoV-2 (PCR) (Not Detectd) 02/15/24 02/15/24 02/15/24 Range/Units 14:10 14:10 14:10 WBC (3.8-10.6) k/uL RBC (4.30-5.90) m/uL Hgb (13.0-17.5) gm/dL Hct (39.0-53.0) % MCV (80.0-100.0) fL MCH (25.0-35.0) pg MCHC (31.0-37.0) g/dL RDW (11.5-15.5) % Plt Count (150-450) k/uL MPV Neutrophils % % Lymphocytes % % Monocytes % % Eosinophils % % Basophils % % Neutrophils # (1.3-7.7) k/uL Lymphocytes # (1.0-4.8) k/uL Monocytes # (0-1.0) k/uL Eosinophils # (0-0.7) k/uL Basophils # (0-0.2) k/uL PT (10.0-12.5) sec INR (<1.2) APTT (22.0-30.0) sec Sodium (137-145) mmol/L Potassium (3.5-5.1) mmol/L Chloride (98-107) mmol/L Carbon Dioxide (22-30) mmol/L Anion Gap mmol/L BUN (9-20) mg/dL Creatinine (0.66-1.25) mg/dL Est GFR (CKD-EPI)AfAm (>60 ml/min/1.73 sqM) Est GFR (CKD-EPI)NonAf (>60 ml/min/1.73 sqM) Glucose (74-99) mg/dL Plasma Lactic Acid Adams 2.2 H* (0.7-2.0) mmol/L Calcium (8.4-10.2) mg/dL Total Bilirubin (0.2-1.3) mg/dL AST (17-59) U/L ALT (4-49) U/L Alkaline Phosphatase (38-126) U/L Troponin I <0.012 (0.000-0.034) ng/mL Total Protein (6.3-8.2) g/dL Albumin (3.5-5.0) g/dL Influenza Type A (PCR) Not Detected (Not Detectd) Influenza Type B (PCR) Not Detected (Not Detectd) RSV (PCR) Not Detected (Not Detectd) SARS-CoV-2 (PCR) Not Detected (Not Detectd) Disposition Clinical Impression: Shakiness Disposition: HOME SELF-CARE Condition: Stable Additional Instructions: Follow-up with PCP for further evaluation. Please return to the Emergency Department if symptoms worsen or any other concerns. Is patient prescribed a controlled substance at d/c from ED?: No Referrals: Elmer Kat MD [Primary Care Provider] - 1-2 days Time of Disposition: 16:01
[2024-02-15 14:27] LABS: Basophils % (A) 0 %; Eosinophils % (A) 0 %; HCT 37.7 % (39.0-53.0); HGB 12.4 gm/dL (13.0-17.5); Lymphocytes % (A) 13 %; MCH 29.8 pg (25.0-35.0); MCHC 32.8 g/dL (31.0-37.0); MCV 90.8 fL (80.0-100.0); Mean Platelet Volume 7.8; Monocytes # (A) 0.3 k/uL (0-1.0); Monocytes % (A) 4 %; Neutrophils % (A) 81 %; Platelet Count 226 k/uL (150-450); RBC 4.16 m/uL (4.30-5.90); RDW 13.5 % (11.5-15.5); WBC 7.5 k/uL (3.8-10.6)
[2024-02-15] MEDS: IBUPROFEN 600 MG TAB PO STA (14:29)
[2024-02-15 14:39] LABS: INR 1.1 (<1.2); Prothrombin Time 11.6 sec (10.0-12.5)
[2024-02-15 14:40] LABS: ALT 19 U/L (4-49); AST 21 U/L (17-59); African American GFR (CKD) 67 (>60 ml/min/1.73 sqM); Albumin 4.1 g/dL (3.5-5.0); Alkaline Phosphatase 70 U/L (38-126); Anion Gap 10 mmol/L; Blood Urea Nitrogen 18 mg/dL (9-20); Calcium 9.6 mg/dL (8.4-10.2); Carbon Dioxide 23 mmol/L (22-30); Chloride 108 mmol/L (98-107); Glucose 202 mg/dL (74-99); Non-African American GFR(CKD) 58 (>60 ml/min/1.73 sqM); Potassium 3.9 mmol/L (3.5-5.1); Sodium 141 mmol/L (137-145); Total Protein 6.1 g/dL (6.3-8.2)
--- NOTE | 2024-02-15 15:32 | XR ---
EXAMINATION TYPE: XR chest 2V DATE OF EXAM: 02/15/2024 COMPARISON: 03/27/2023 HISTORY: 83-year-old male with chills and abdominal pain TECHNIQUE: PA and lateral views FINDINGS: Heart normal size. Aorta and pulmonary vasculature within normal limits. Hazy lower lung densities re lating to overlying soft tissue. No consolidation or pleural effusion. IMPRESSION: No acute cardiopulmonary process. [facility] Charly Blake, , 02/15/2024 3:30 PM
[2024-02-15 16:19] VITALS: BP 131/78; TEMP 97.9
== END 2024-02-15 16:19 | disposition home or self-care (01) ==
LOC: EC 13:15
CPT/HCPCS: 36415; 71046; 80053; 83605; 84484; 85025; 85610; 85730; 87636; 93005; 99284